=== PATIENT | female | born 1970 | race Caucasian/White ===

== ENCOUNTER → 2017-10-12 07:00 | Outpatient (CLI) | payer OTHER, SELFPAY ==
--- NOTE | 2017-10-12 06:54 | HPBI_ITS ---
MAMMOGRAPHY - BILATERAL SCREENING REASON FOR EXAM: Female, 47 years old. Routine annual screening examination. PERTINENT HISTORY: Non-contributory. TECHNIQUE: Digital bilateral breast serjio (3D mammographic acquisition) in the CC and MLO projections. 2-D mediolateral oblique (MLO) and craniocaudad (CC) views of both breasts were obtained. CAD: Full Field Digital Mammography with Computer Added Detection was performed. COMPARISON: Comparison is made with prior study dated September 30, 2016 and July 16, 2015. FINDINGS: Breast Composition: The breasts are almost entirely fatty. There are no dominant masses or suspicious calcifications. Stable benign-appearing bilateral axillary lymph nodes. No other significant abnormalities are identified. There has been no significant change since the prior study. HPBI/SCREENING MAMM (CAD), BILAT IMPRESSION: Stable bilateral screening mammogram. Yearly follow-up mammogram recommended. (A) ASSESSMENT CATEGORY: BIRADS Category 2: Benign. A letter regarding these results will be sent to the patient by the facility within 30 days. Approximately 10% of breast cancers are not detected by mammography. A normal mammogram should not delay biopsy of a clinically suspicious abnormality. [id number] Electronically Signed: Cristian Sellers MD at 14:42 EST Tel [phone], Service support ,
== END ==
PROVIDERS: Family Provider Family Medicine; PCP Family Medicine; Visit Provider Obstetrics & Gynecology
DX: Z12.31 Encounter for screening mammogram for malignant neoplasm of breast (principal)
CPT/HCPCS: 77063; 77067

== ENCOUNTER → 2017-10-14 14:06 | Outpatient (CLI) | payer OTHER, SELFPAY ==
[2017-10-18 16:39] LABS: HPV Reflexed? NOT INDICATED
== END ==
PROVIDERS: Family Provider Family Medicine; PCP Family Medicine; Visit Provider Obstetrics & Gynecology
DX: Z12.4 Encounter for screening for malignant neoplasm of cervix (principal)
CPT/HCPCS: 88175; G0145

== ENCOUNTER → 2018-11-09 09:47 | Outpatient (CLI) | payer OTHER, SELFPAY ==
--- NOTE | 2018-11-09 09:51 | BI_ITS ---
We are attempting to reach Soila Mccauley MD to discuss findings. An addendum with communication details will be sent when the communication is complete. MAMMOGRAPHY - BILATERAL SCREENING REASON FOR EXAM: Female, 48 years old. Routine annual screening examination. PERTINENT HISTORY: Non-contributory. TECHNIQUE: Digital bilateral breast serjio (3D mammographic acquisition) in the CC and MLO projections. 2-D mediolateral oblique (MLO) and craniocaudad (CC) views of both breasts were obtained. CAD: Full Field Digital Mammography with Computer Added Detection was performed. COMPARISON: Comparison is made with prior study dated October 12, 2017 and September 30, 2016. FINDINGS: Breast Composition: The breasts are almost entirely fatty. There are no dominant masses or suspicious calcifications. No other significant abnormalities are identified. There has been no significant change since the prior study. BI/SCREENING MAMM (CAD), BILAT IMPRESSION: Stable bilateral screening mammogram. Yearly follow-up mammogram recommended. (A) ASSESSMENT CATEGORY: BIRADS Category 1: Negative. A letter regarding these results will be sent to the patient by the facility within 30 days. Approximately 10% of breast cancers are not detected by mammography. A normal mammogram should not delay biopsy of a clinically suspicious abnormality. [id number] Pending Final Proof Editing
== END ==
PROVIDERS: Family Provider Family Medicine; PCP Family Medicine; Referring Provider Obstetrics & Gynecology; Visit Provider Obstetrics & Gynecology
DX: Z12.31 Encounter for screening mammogram for malignant neoplasm of breast (principal)
CPT/HCPCS: 77063; 77067

== ENCOUNTER → 2018-11-09 12:09 | Outpatient (CLI) | payer OTHER, SELFPAY ==
[2018-11-09 16:01] LABS: Hematocrit 42.2 % (37-47); Hemoglobin 13.7 g/dl (12.0-15.0); Mean Corp Hgb Conc 32.5 g/gl (32-36); Mean Corpuscular Hgb 30.4 pg (27.0-32.0); Mean Corpuscular Volume 93.6 fL (81-99); Mean Platelet Vol. 11.1 fl (6.2-12.0); Platelet Count 292 K/mm3 (150-450); RBC Distribution Width CV 12.6 % (11.6-14.6); RBC Distribution Width SD 42.9 fl (35.1-43.9); Red Blood Count 4.51 M/mm3 (4.2-5.4); White Blood Count 8.2 K/mm3 (4.4-11.0)
[2018-11-09 16:02] LABS: Scan Indicated on CBC? Y/N NO
[2018-11-09 16:22] LABS: ALB/GLOB Ratio 1.2 RATIO (0.9-2.4); AST(SGOT) 78 U/L (15-37); Alanine Aminotransfer ALT/SGPT 71 U/L (13-56); Albumin, Serum 4.1 g/dL (3.2-5.0); Alkaline Phosphatase 95 U/L (45-117); Anion Gap 13 (5-15); BUN 8 mg/dL (7-18); BUN/Creat Ratio 11.3 RATIO (10-20); Calcium,Total 9.4 mg/dL (8.5-10.1); Chloride 106 mmol/L (98-107); Creatinine, Serum 0.71 mg/dL (0.55-1.02); EST Glomerular Filtration Rate 93 mL/min (>60); Est Glom Filt Rate - Afr Amer 113 mL/min (>60); Globulin 3.5 g/dL (2.2-4.2); Glucose 202 mg/dL (74-106); Protein, Total 7.6 g/dL (6.4-8.2); Sodium Level 140 mmol/L (136-145)
[2018-11-15 12:23] LABS: HPV Reflexed? NOT INDICATED
== END ==
PROVIDERS: Visit Provider Obstetrics & Gynecology
DX: Z12.4 Encounter for screening for malignant neoplasm of cervix (principal); R19.00 Intra-abdominal and pelvic swelling, mass and lump, unspecified site
CPT/HCPCS: 36415; 80053; 85027; 88175; G0145

== ENCOUNTER → 2018-11-14 11:27 | Outpatient (CLI) | payer OTHER, SELFPAY ==
--- NOTE | 2018-11-14 12:59 | CT_ITS ---
STUDY: CT ABDOMEN AND PELVIS WITH CONTRAST REASON FOR EXAM: Female, 48 years old. Right adnexal mass RADIATION DOSAGE (If Supplied By Facility): CTDIvol = ( 20.42 ) mGy, DLP = ( 2071.82 ) mGycm TECHNIQUE: Transaxial images were obtained from the dome of the diaphragm to the symphysis pubis without oral contrast. Isovue 300 100 IV/Oral was administered. Sagittal and coronal images were reconstructed. Individualized dose optimization techniques were used for this CT. COMPARISON: None. FINDINGS: The visualized lung bases are unremarkable. The visualized portions of the heart are within normal limits. Liver is fatty infiltrated without mass or bile duct dilatation. Gallbladder has been removed surgically.. Normal spleen. Normal pancreas. Normal bilateral adrenal glands. Normal right kidney. Normal left kidney. Normal visualized stomach. Normal small intestine. Normal colon. No evidence for acute appendicitis. Normal abdominal aorta. Normal inferior vena cava. Normal retroperitoneum. There is a large complex predominantly solid mass in the right adnexa measuring approximately 10.95 x 6.94 x 6.81 cm displacing the uterus towards the left and depressing the dome of the bladder which is incompletely distended and thick-walled. There is a moderate size fat-containing umbilical hernia.. Lumbar spine demonstrates mild spondylosis CT/Abdomen/Pelvis WITH Contrast IMPRESSION: Large complex predominantly solid mass in the right adnexa most likely ovarian however cannot definitively exclude pedunculated fibroid. MRI would be helpful for further evaluation. Nonspecific fatty infiltration of the liver. Status postcholecystectomy. Electronically Signed: Alvin Renteria MD at 17:14 EST , Service support ,
[2018-11-14 14:13] LABS: Hemoglobin A1c 8.7 % (4.2-6.3)
[2018-11-14 14:18] LABS: Free T3 4.4 pg/mL (2.18-3.98); T4 Free Direct 1.19 ng/dL (0.76-1.46); Thyroid Stim Hormone (TSH) 1.85 uIU/mL (0.358-3.74)
== END ==
PROVIDERS: Family Provider Family Medicine; PCP Family Medicine; Referring Provider Obstetrics & Gynecology; Visit Provider Obstetrics & Gynecology
DX: R19.09 Other intra-abdominal and pelvic swelling, mass and lump (principal); R73.09 Other abnormal glucose
CPT/HCPCS: 36415; 74177; 83036; 84439; 84443; 84481; Q9967

== ENCOUNTER → 2018-12-01 12:28 | Outpatient (CLI) | payer OTHER, SELFPAY ==
--- NOTE | 2018-12-01 13:00 | MRI_ITS ---
STUDY: MR PELVIS WITH T WITHOUT CONTRAST REASON FOR EXAM: Female, 48 years old. Right sided adnexal mass. TECHNIQUE: Standardized fat and water weighted pulse sequences were obtained in all 3 orthogonal planes, pre-and post contrast administration. Dotarem 20 ml IV was administered for the contrast portion of the examination. COMPARISON: CT of the abdomen and pelvis dated November 14, 2018. FINDINGS: Normal urinary bladder. There is no evidence for dilated bowel. There appears to be abnormal thickening of the roman of the rectum and sigmoid colon. The roman measure up to 1.3 cm in thickness. The uterus has a normal appearance and measures approximately 10.4 x 5.3 x 4.6 cm in size. There is a large right-sided pelvic mass adjacent to the uterus probably arising from the right ovary. This mass measures 9.1 cm in AP dimension by 6.3 cm in transverse dimension by 9.5 cm in cephalocaudal dimension. The mass has multiple peripheral areas of increased T2 hyperintensity with more central areas of decreased T2 signal. There is heterogeneous enhancement of the mass. There is no pelvic fluid. There is no pelvic lymphadenopathy. Normal visualized pelvic arteries. Normal osseous structures. Normal abdominal wall. MRI/Pelvis W/WO Contrast IMPRESSION: Large right-sided pelvic mass. This presumably arises from the right ovary and/or adnexal area and is neoplastic. Electronically Signed: Ciara Sorto MD at 4:34 EDT , Service support ,
== END ==
PROVIDERS: Family Provider Family Medicine; PCP Family Medicine; Referring Provider Obstetrics & Gynecology; Visit Provider Obstetrics & Gynecology
DX: R19.03 Right lower quadrant abdominal swelling, mass and lump (principal)
CPT/HCPCS: 72197; A9575

== ENCOUNTER → 2018-12-07 14:16 | Outpatient (CLI) | payer OTHER, SELFPAY ==
[2018-12-07 15:09] LABS: LDH 254 U/L (84-246)
[2018-12-07 15:16] LABS: hCG Titer Quant., Serum < 1 mIU/mL (<9 non-preg)
[2018-12-08 14:03] LABS: Cancer Antigen 125 21.2 U/mL (0.0-38.1); Carbohydrate AG 19-9 29 U/mL (0-35); Carcinoembryonic Antigen 2.6 ng/mL (0.0-4.7)
== END ==
PROVIDERS: Family Provider Family Medicine; PCP Family Medicine; Visit Provider Obstetrics & Gynecology
DX: N83.209 Unspecified ovarian cyst, unspecified side (principal)
CPT/HCPCS: 36415; 82378; 83615; 84702; 86301; 86304

== ENCOUNTER 2018-12-15 09:45 | Day surgery (SDC) | payer OTHER, SELFPAY ==
[2018-12-14 13:08] VITALS: BMI 47.2
[2018-12-15 10:05] VITALS: BP 159/88; PULSE 103; RESP 20; TEMP 37.2; O2SAT 99; BMI 46.6
[2018-12-15 10:16] LABS: Internal QC Validated? YES +Cl - CLEAR BKGD; Pregnancy, Urine Negative Negative
[2018-12-15 10:25] LABS: Bedside Glucose 194 mg/dL (70-110)
[2018-12-15 11:53] VITALS: BP 144/81; BP 159/88; PULSE 97; RESP 16; TEMP 36.1; O2SAT 99
--- NOTE | 2018-12-15 11:53 | OP.ENDO_ITS ---
12/15/2018 Juan Portillo Re : Colonoscopy procedure for Deepti Perez Dear Bandar This procedure was performed on Saturday, December 15, 2018. My impressions and recommendations are as follows: Impressions : - Hemorrhoids found on perianal exam. - The entire examined colon is normal on direct and retroflexion views. - No specimens collected. Recommendations : - Discharge patient to home. - Resume previous diet. - Continue present medications. - Repeat colonoscopy in 10 years for screening purposes. My findings are described in the full procedure note, which is enclosed. If I can be of further assistance, please feel free to contact me at Doctor phone number(s): , Work: . Sincerely, Gordon Del Toro MD 12/15/2018 11:53:20 AM This report has been signed electronically.
[2018-12-15 11:58] VITALS: BP 138/83; BP 159/88; PULSE 88; RESP 16; O2SAT 100
[2018-12-15 12:03] VITALS: BP 138/90; BP 159/88; PULSE 91; RESP 16; O2SAT 100
[2018-12-15 12:08] VITALS: BP 119/83; BP 159/88; PULSE 89; RESP 16; TEMP 35.9; O2SAT 100
[2018-12-15 12:36] VITALS: BP 159/88
== END 2018-12-15 12:36 | disposition home or self-care (01) ==
LOC: EN 09:46 → AC 09:47
PROVIDERS: Anesthesiology; Family Provider Family Medicine; PCP Family Medicine; Referring Provider Family Medicine; Visit Provider Surgery
PROC: 0DJD8ZZ Inspection of Lower Intestinal Tract, Via Natural or Artificial Opening Endoscopic (ICD-10-PCS; CPT 45378; principal; 2018-12-15 10:55)
DX: K64.9 Unspecified hemorrhoids (principal); R93.3 Abnormal findings on diagnostic imaging of other parts of digestive tract; R19.09 Other intra-abdominal and pelvic swelling, mass and lump; K63.89 Other specified diseases of intestine; E11.9 Type 2 diabetes mellitus without complications; Z79.84 Long term (current) use of oral hypoglycemic drugs; Z87.891 Personal history of nicotine dependence
CPT/HCPCS: 45378; 81025; 82962; J7120

== ENCOUNTER → 2018-12-28 15:00 | Outpatient (CLI) | payer OTHER, SELFPAY ==
[2018-12-15 10:05] VITALS: BMI 46.6
[2018-12-28 17:57] LABS: LDH 166 U/L (84-246)
[2019-01-01 11:30] LABS: HCG BETA-SUBUNIT QUANT. < 1 mIU/mL (.)
[2019-01-01 12:02] LABS: AFP, Tumor Marker 4.8 ng/mL (0.0-8.3)
== END ==
PROVIDERS: Family Provider Family Medicine; PCP Family Medicine; Visit Provider Obstetrics & Gynecology
DX: R19.00 Intra-abdominal and pelvic swelling, mass and lump, unspecified site (principal)
CPT/HCPCS: 36415; 82105; 83615; 84702

== ENCOUNTER → 2019-01-18 09:00 | Outpatient (CLI) | payer OTHER, SELFPAY ==
[2019-01-18 09:15] VITALS: BP 154/91; PULSE 89; RESP 16; TEMP 36.5; O2SAT 96; BMI 45.3
--- NOTE | 2019-01-18 09:20 | SDCEKG_ITS ---
Test Reason : Blood Pressure : / mmHG Vent. Rate : 089 BPM Atrial Rate : 089 BPM P-R Int : 158 ms QRS Dur : 080 ms QT Int : 364 ms P-R-T Axes : 048 002 022 degrees QTc Int : 442 ms Normal sinus rhythm Inferior infarct , age undetermined Cannot rule out Anterior infarct , age undetermined Abnormal ECG Confirmed by CHARLES SOLOMON, PHOEBE ([id number]), web content editor ISAÍAS MATUTE ([id number]) on 01/23/2019 9:15:03 AM Referred By: Soila Mccauley Confirmed By:PHOEBE SOTO MD
--- NOTE | 2019-01-18 09:45 | RAD_ITS ---
STUDY: X-RAY CHEST REASON FOR EXAM: Female, 48 years old. Preoperative evaluation. TECHNIQUE: PA and lateral views of the chest. COMPARISON: None. FINDINGS: The lungs are clear and expanded. There is no demonstrated pleural abnormality. Normal size heart. Normal mediastinum and thee. Normal visualized pulmonary arteries. Normal visualized aortic arch and descending thoracic aorta. Normal visualized thoracic spine. Normal visualized ribs, clavicles, and shoulders. There is no demonstrated abnormality of the visualized soft tissue structures of the upper abdomen. RAD/Chest PA and Lateral IMPRESSION: Normal x-ray examination of the chest. Electronically Signed: Cristian Sellers, at 10:30 EDT , Service support ,
[2019-01-18 09:55] LABS: Hematocrit 39.3 % (37-47); Hemoglobin 13.5 g/dl (12.0-15.0); Mean Corp Hgb Conc 34.4 g/gl (32-36); Mean Corpuscular Hgb 31.5 pg (27.0-32.0); Mean Corpuscular Volume 91.6 fL (81-99); Mean Platelet Vol. 9.8 fl (6.2-12.0); Platelet Count 279 K/mm3 (150-450); RBC Distribution Width CV 12.8 % (11.6-14.6); RBC Distribution Width SD 42.6 fl (35.1-43.9); Red Blood Count 4.29 M/mm3 (4.2-5.4); White Blood Count 7.3 K/mm3 (4.4-11.0)
[2019-01-18 09:58] LABS: Scan Indicated on CBC? Y/N NO
[2019-01-18 10:05] LABS: Partial Thromboplast Time 27.9 Seconds (24.1-36.2); Prothrombin Time (Protime)PT. 12.6 SECONDS (11.7-14.9)
[2019-01-18 10:16] LABS: Hemoglobin A1c 6.7 % (4.2-6.3)
[2019-01-18 10:28] LABS: Anion Gap 10 (5-15); BUN 9 mg/dL (7-18); Calcium,Total 8.6 mg/dL (8.5-10.1); Chloride 106 mmol/L (98-107); Creatinine, Serum 0.69 mg/dL (0.55-1.02); EST Glomerular Filtration Rate 96 mL/min (>60); Est Glom Filt Rate - Afr Amer 116 mL/min (>60); Glucose 178 mg/dL (74-106); Potassium 3.6 mmol/L (3.5-5.1); Sodium Level 138 mmol/L (136-145); Thyroid Stim Hormone (TSH) 1.13 uIU/mL (0.358-3.74)
--- NOTE | 2019-01-22 19:23 | PCM.HP.STD ---
Problem List (1) Adnexal mass Status: Acute History of Present Illness Date of Admission: 01/25/19 Chief Complaint: right adnexal mass and pelvic pain The patient is a 48 year old F with pain of pelvis following fall down flight of stairs. Notation of right adnexal mass 9cm. Patient desires hysterectomy. Patient with recent diagnosis of diabetes. Clearance by pcp of the diabetes. Past Medical History Medical History: Medical History (Last Updated 12/14/18 @ 13:07 by Yuliana Mcginnis) Adnexal mass N94.9 Diabetes E11.9 Allergies nickel Allergy (Mild, Verified 01/18/19 09:07) rash Home Medications: Ambulatory Orders Medication Instructions Recorded Calcium Polycarbophil [Fiber Tabs] 1,250 mg PO QHS 12/14/18 L norgest/E estradiol-E estrad 1 tab PO DAILY 12/14/18 0.15 mg-30 mcg (84)/10 mcg(7) tabs,3mos ascorbic acid (vitamin C) 1,000 mg 1 g PO DAILY 12/14/18 tablet metformin 500 mg tablet 500 mg PO TID tab 12/14/18 multivitamin,fi-rrbr-kmzjzkas 1 tab PO DAILY 12/14/18 tablet Cetirizine HCl [Zyrtec] 10 mg PO DAILY 01/18/19 Surgical History: Surgical History (Last Updated 12/14/18 @ 13:07 by Yuliana Mcginnis) History of section Z98.891 History of cholecystectomy Z90.49 History of hernia repair Z98.890, Z87.19 Smoking Status: Former smoker Review of Systems Constitutional: Denies: Chills, Fever, Weight Change HEENT: Denies: Difficulty Hearing, Difficulty Swallowing, Nasal bleeding, Nasal Congestion, Sore Throat Cardiovascular: Denies: Chest Pain, Palpitations Respiratory: Denies: Shortness of Breath, Wheezing Gastrointestinal: Denies: Constipation, Diarrhea, Nausea, Vomiting Genitourinary: Denies: Dysuria, Frequency, Hematuria, Incontinence, Urgency Musculoskeletal: Denies: Joint Pain, Muscle pain Skin: Denies: Lesions, Skin Changes Neurological: Denies: Focal weakness, Numbness Psychiatric: Denies: Anxiety, Depression Endocrine: Denies: Heat/ Cold Intolerance Hematologic/ Lymphatic: Denies: Easy Bleeding VTE Information - Inpt Only VTE Present on Admission: No VTE Mechan Device Prophylaxis: SCD's VTE Pharm Prophylaxis ordered?: No Reason prophylaxis not ordered:: Procedure Not Indicated Subjective: Patient is 5 feet, 4 inches. Weight is 278 pounds. Alert and oriented x 3. No distress. - Physical Exam General: No apparent distress, Well developed, Well nourished HEENT: PERRLA, EOMI, Normocephalic Oral: Moist Mucosa Neck: Supple, Thyroid Normal Size and Texture Lungs: Clear to auscultation, Normal air movement, No wheeze Cardiovascular: Regular rate, Regular Rhythm Abdomen: Bowel Sounds Present, Soft, Non Tender Extremities: No edema, No Calf Tenderness Skin: No rashes Musculoskeletal: No Tenderness to Palpation of Joints or Extremities Neurological: Cranial nerves II-XII grossly intact Vital Signs Temp Pulse Resp BP Pulse Ox 97.7 F L 89 16 154/91 H 96 01/18/19 09:15 01/18/19 09:15 01/18/19 09:15 01/18/19 09:15 01/18/19 09:15 Oxygen Delivery Method Room Air Weight: 264 lb 8.875 oz Body Mass Index (BMI) 45.3 Assessment/Plan All Active Problems (Last Updated 12/14/18 @ 13:07 by Yuliana Mcginnis) Adnexal mass (Acute) Adnexal mass (Acute) Mural thickening of colon (Acute) 1. Right adnexal mass and pelvic pain patient desires hysterectomy. Plan robotic assisted hysterectomy, BSO. negative tumor markers frozen section of mass is planned the preop preparation including bowel prep, the intraop procedures and the postop recovery reviewed. The risks of bleeding, infection and other organ damage including bladder, bowel and ureteral injury reviewed, accepted and consented. 2. Prior hernia repairs obtain operative reports as to mesh usage and location 3. Thickened bowel wall on CT general surgery consult and clearance 4. Diabetes Mellitus recent diagnosis improved HgA1C below 7 postop nutrition consult is recommended for best healing
== END ==
PROVIDERS: Anesthesiology; Family Provider Family Medicine; PCP Family Medicine; Referring Provider Obstetrics & Gynecology; Visit Provider Obstetrics & Gynecology
DX: Z01.818 Encounter for other preprocedural examination (principal)
CPT/HCPCS: 71046; 80048; 83036; 84443; 85027; 85610; 85730; 86850; 86900; 93005

== ENCOUNTER → 2019-02-01 12:22 | Outpatient (CLI) | payer OTHER, SELFPAY ==
[2019-01-26 09:23] VITALS: BMI 44.8
--- NOTE | 2019-02-01 12:24 | ECHOD_ITS ---
Reason For Study: HYPERTENSION Procedure This was a 2D Doppler, Color Flow transthoracic echocardiogram. The study was technically difficult. Due to body habitus. Exam performed in department. Left Ventricle Normal LV size. Left ventricular systolic function is normal. The estimated ejection fraction is 60 %. Stage 1 diastolic dysfunction. No regional wall motion abnormalities noted. Right Ventricle Normal RV size. Normal systolic function. Atria Normal left atrium. Normal right atrium. Mitral Valve Normal mitral valve. Tricuspid Valve Normal tricuspid valve. Aortic Valve Normal aortic valve. Trisinus/trileaflet aortic valve. Pulmonic Valve Normal pulmonic valve. Great Vessels Normal aortic root. The pulmonary artery is normal size. Normal inferior vena cava. Pericardium/Pleural No pericardial effusion. MMode/2D Measurements & Calculations LVIDd: 5.4 cm IVSd: 0.84 cm Ao root diam: 3.3 cm LVIDs: 4.0 cm LVPWd: 0.97 cm RVDd: 3.9 cm FS: 27.0 % LAV(MOD-bp): 63.1 ml LA A4 area: 22.3 cm2 LA dimension(2D): 3.7 cm LAV(MOD-bp) Indexed: 28.8 ml/m2 LAV(MOD-sp2): 52.7 ml LAV(MOD-sp4): 71.2 ml Time Measurements MV dec time: 0.15 sec Doppler Measurements & Calculations MV E max ziggy: 103.2 cm/sec Lat Peak E' Ziggy: 12.0 cm/sec Med Peak E' Ziggy: 11.9 cm/sec MV A max ziggy: 113.1 cm/sec E/E' lat: 8.6 E/E' med: 8.7 MV E/A: 0.91 Ao V2 max: 173.8 cm/sec LV V1 max: 140.1 cm/sec PA V2 max: 100.5 cm/sec Ao max P.1 mmHg LV V1 max P.9 mmHg Interpretation Summary Normal LV size. Left ventricular systolic function is normal. The estimated ejection fraction is 60 %. Stage 1 diastolic dysfunction. Structurally normal valves. Ordering Physician: Ramesh Fernandes Referring Physician: Juan Portillo Performed By: Tawanna Wood, HORACE, RVT
== END ==
PROVIDERS: Family Provider Family Medicine; PCP Family Medicine; Referring Provider Internal Medicine Cardiovascular Disease; Visit Provider Internal Medicine Cardiovascular Disease
DX: Z01.810 Encounter for preprocedural cardiovascular examination (principal)
CPT/HCPCS: 93306

== ENCOUNTER 2019-03-28 17:24 | Observation (INO) | payer OTHER, SELFPAY ==
[2019-02-27 12:42] VITALS: BMI 46.2
[2019-03-23 16:05] LABS: Prothrombin Time (Protime)PT. 12.5 SECONDS (11.7-14.9)
[2019-03-23 16:06] LABS: Hematocrit 40.9 % (37-47); Hemoglobin 13.8 g/dl (12.0-15.0); Mean Corp Hgb Conc 33.7 g/gl (32-36); Mean Corpuscular Hgb 30.7 pg (27.0-32.0); Mean Corpuscular Volume 90.9 fL (81-99); Mean Platelet Vol. 10.6 fl (6.2-12.0); Partial Thromboplast Time 27.6 Seconds (24.1-36.2); Platelet Count 326 K/mm3 (150-450); RBC Distribution Width CV 12.2 % (11.6-14.6); RBC Distribution Width SD 39.9 fl (35.1-43.9); White Blood Count 8.6 K/mm3 (4.4-11.0)
[2019-03-23 16:07] LABS: Scan Indicated on CBC? Y/N NO
[2019-03-23 16:47] LABS: Hemoglobin A1c 6.3 % (4.2-6.3)
--- NOTE | 2019-03-26 12:49 | PCM.HP.STD ---
Problem List (1) Adnexal mass Status: Acute History of Present Illness Date of Admission: 03/27/19 Chief Complaint: Adnexal mass The patient is a 48 year old F requiring surgical removal of right adnexal mass. Identified after patient had fall. Noted on multiple imaging studies. Tumor markers via serum in benign range. Patient with multiple prior abdominal mesh placements. General surgery to assist to enter the abdomen, perform appendectomy and repair a ventral hernia. Past Medical History Medical History: Medical History (Last Reviewed 03/26/19 @ 13:34 by Soila Mccauley MD) Adnexal mass N94.9 History of depression Z86.59 Type 2 diabetes mellitus without complication E11.9 Allergies bacitracin [From Neosporin ([id number])] Allergy (Intermediate, Verified 03/21/19 11:08) rash neomycin [From Neosporin ([id number])] Allergy (Intermediate, Verified 03/21/19 11:08) rash polymyxin B [From Neosporin ([id number])] Allergy (Intermediate, Verified 03/21/19 11:08) rash nickel Allergy (Mild, Verified 03/21/19 11:08) rash Home Medications: Ambulatory Orders Medication Instructions Recorded L norgest/E estradiol-E estrad 1 tab PO DAILY 12/14/18 0.15 mg-30 mcg (84)/10 mcg(7) tabs,3mos ascorbic acid (vitamin C) 1,000 mg 1 g PO DAILY 12/14/18 tablet multivitamin,hp-wbps-phcobrbr 1 tab PO DAILY 12/14/18 tablet Cetirizine HCl [Zyrtec] 10 mg PO DAILY 01/18/19 albuterol sulfate HFA 90 2 puff INHALATION Q6H PRN 01/25/19 mcg/actuation aerosol inhaler metformin ER 500 mg 500 mg PO TID tab 01/25/19 tablet,extended release 24 hr lactobacillus combination no.4 3 3,000 mmu cells PO DAILY 01/26/19 billion cell capsule Glipizide [Glipizide ER] 2.5 mg PO DAILY 03/21/19 Surgical History: Surgical History (Last Updated 02/27/19 @ 12:42 by Yuliana Mcginnis) History of colonoscopy Onset Date: ~12/2018 Z98.890 History of section Z98.891 History of cholecystectomy Z90.49 History of hernia repair Z98.890, Z87.19 Smoking Status: Former smoker Review of Systems Constitutional: Denies: Chills, Fever, Weight Change Eyes: Reports: - HEENT: Denies: Difficulty Hearing, Difficulty Swallowing, Nasal bleeding, Nasal Congestion, Sore Throat Cardiovascular: Denies: Chest Pain, Palpitations Respiratory: Denies: Shortness of Breath, Wheezing Gastrointestinal: Denies: Constipation, Diarrhea, Nausea, Vomiting Genitourinary: Denies: Dysuria, Frequency, Hematuria, Incontinence, Urgency Musculoskeletal: Denies: Joint Pain, Muscle pain Skin: Denies: Lesions, Skin Changes Neurological: Denies: Focal weakness, Numbness Psychiatric: Denies: Anxiety, Depression Endocrine: Denies: Heat/ Cold Intolerance Hematologic/ Lymphatic: Denies: Easy Bleeding VTE Information - Inpt Only VTE Present on Admission: No VTE Mechan Device Prophylaxis: SCD's VTE Pharm Prophylaxis ordered?: No Reason prophylaxis not ordered:: Procedure Not Indicated Subjective: Female at 5'4 and 251 pounds. No acute distress. - Physical Exam General: No apparent distress, Well developed, Well nourished HEENT: Atraumatic Oral: Moist Mucosa Neck: Supple, No Nuchal Rigidity Lungs: Clear to auscultation, Normal air movement Cardiovascular: Regular rate, No murmurs, No rub noted Abdomen: Soft, Non-Distended, - - No guarding, hepatomegaly, splenomegaly, rebound tenderness Extremities: No edema, No Calf Tenderness Skin: No rashes Musculoskeletal: No Tenderness to Palpation of Joints or Extremities Neurological: Cranial nerves II-XII grossly intact Body Mass Index (BMI) 46.2 Assessment/Plan All Active Problems (Last Reviewed 02/27/19 @ 12:42 by Yuliana Mcginnis) Preop cardiovascular exam (Acute) Abnormal EKG (Acute) Adnexal mass (Acute) Mural thickening of colon (Acute) 1. Right adnexal mass Robotic assisted hysterectomy, BSO is planned with high likelihood of required laparotomy and MIHAI/BSO due to multiple mesh surgeries in the past. The preop preparation including bowel prep, the intraop procedures and the postop recovery reviewed. The risks of bleeding, infection and other organ damage including bladder, bowel and ureteral injury reviewed, accepted and consented. 2. Type II diabetes metformin improved status and HgA1C 3. 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 Mesh hernia repairs x 4 Dr. Del Toro as co-surgeon planned ventral hernia repair
[2019-03-27] VITALS (17 sets, daily range): BP systolic 119–168; BP diastolic 63–96; PULSE 81–116; RESP 16–18; TEMP 36.3–37.1; O2SAT 92–99; BMI 42.3
--- NOTE | 2019-03-27 | MASS_PTH ---
PATIENT: JAIME BUSTILLOS LOC: [facility] U#:[id number] AGE/SX: 48/F ROOM: [facility]313 RE03/28/[address]: Dr. Gordon Del Toro MD : 1970 BED: 1 DIS: 03/29/2019 SPEC #: [id number] RECD: 03/27/19 10:54 STATUS: YANELI REDonald #: [id number] ANTONIA: 03/27/19 00:[address]: Gordon Del Toro DEPT: SURGICAL PATHOLOGY RECD BY: Christina Paul ENTERED: 03/27/19 11:21 SP TYPE: Mass OTHR DR: MD Dr. Juan Lerner MD Tissues: A - Pelvis, NOS B - Uterus, NOS Procedures: Frozen Section (charge) Surgery Specimen Level IV Surgery Specimen Level HEADER OPERATION: Hysterectomy, bilateral salpingo-oophorectomy PRE-OP DIAGNOSIS: Right adnexal mass TISSUE SUBMITTED: A - Pelvic mass, B - Uterus, cervix, bilateral fallopian tubes and ovaries FROZEN SECTION DIAGNOSIS A. Pelvic mass, excision: Leiomyoma. AM:nany 03/27/19 Case has been reviewed in consultation with Dr. Shaw who concurs with the above diagnosis. IDC:KEVIN MICROSCOPIC DIAGNOSIS A. Pelvic mass, excision: Leiomyoma (337 gm, 12 cm in greatest dimension). B. Uterus, cervix, bilateral fallopian tubes and bilateral ovaries, hysterectomy and bilateral salpingo-oophorectomy: Cervix - chronic cystic cervicitis. Endometrium - weakly proliferative endometrium. Myometrium - intramural leiomyomas (largest measuring 1 cm in greatest dimension). - Focal adenomyosis. Bilateral fallopian tubes - no pathologic diagnosis. Right ovary - no pathologic diagnosis. Left ovary - focal endometriosis. KEVIN:nany 03/29/19 COMMENT Case has been reviewed in consultation with Dr. Montoya who concurs with the above diagnosis. IDC:SADA MICROSCOPIC DESCRIPTION Slides are reviewed. GROSS DESCRIPTION A - Received fresh for frozen section diagnosis labeled with the patient's name is a specimen designated pelvic mass. The specimen consists of a villagran solid nodular piece of tissue weighing 337 gm and measuring 12 x 10 x 7 cm. The outer surface is smooth and inked black. Serial sections reveal villagran whorled cut surfaces without areas of hemorrhage or necrosis. Sections revealed focal areas of cystic changes. Two sections are submitted for frozen section diagnosis. Environmental Health Specialist sections are submitted in eight cassettes as follows: 1 & 2 - frozen sections, 38 - more sections. / SJ:rg 03/27/19 B - Received in fixative is one container labeled with the patient's name and designated uterus, cervix, bilateral fallopian tubes, bilateral ovaries. The specimen consists of a hysterectomy specimen consisting of uterus with cervix and attached bilateral fallopian tubes and ovaries. The uterus with cervix weighs 109 gm and measures 9.5 x 6 x 4.5 cm. The serosal surface is villagran, glistening. The ectocervical mucosa is focally congested. The external os is slit-like in contour. The endocervical canal measures 3.5 cm in length and the endocervical mucosa is villagran, glistening without any mass lesion. The endocervical canal also shows mucoid, bloody material. The triangular endometrial cavity measures 5 cm in length and up to 2.5 cm in width. The endometrium is villagran, glistening without any mass lesion and measures 0.1 cm in thickness. The uterine wall reveals multiple intramural nodular masses with the largest mass measuring 1 cm in greatest dimension. Sections of these masses reveal villagran whorled cut surfaces without areas of hemorrhage, necrosis or cystic degeneration. The uninvolved uterine wall measures up to 2 cm in thickness. The right fallopian tube measures 5 cm in length and up to 0.5 cm in diameter. The fimbrial end is identified. A few adherent pieces of adipose tissue are noted. No tubo-ovarian adhesions are identified. Sections reveal unremarkable cut surfaces. The right ovary measures 2.5 x 1.5 x 0.7 cm. Sections reveal unremarkable cut surfaces. The left fallopian tube is similar appearance to right and measures 5 cm in length and 0.5 cm in diameter. Definite fimbrial end is not identified. Adherent pieces of adipose tissue are noted adjacent to fallopian tube. No tubo-ovarian adhesions are noted. The left ovary measures 2.4 x 1.5 x 1 cm. Sections reveal unremarkable cut surfaces. Environmental Health Specialist sections are submitted in 11 cassettes as follows: 1 - anterior cervix, 2 - posterior cervix, 3 & 4 - anterior uterine wall, 5 & 6 - posterior uterine wall, 7 - nodular masses, 8 - right fallopian and attached adipose tissue, 9 - right ovary, 10 - left fallopian tube and attached adipose tissue, 11 - left ovary. / SJ:rg 03/28/19 TC:1 CPT: 20713, 68496, 49628, 01048 ADDENDUM ADDENDUM ADDENDUM ADDENDUM ADDENDUM ADDENDUM ADDENDUM ADDENDUM ADDENDUM ADDENDUM 04/05/2019 10:06 ADDENDUM 04/05/2019 10:06 ADDENDUM 04/05/2019 10:06 ADDENDUM 04/05/2019 10:06 ADDENDUM 04/05/2019 10:06 This addendum is added to incorporate an outside pathology consultation report. The case was examined at [facility] (#[id number]) and the following diagnosis was rendered. A. Pelvic mass, excision: Leiomyoma. Please see complete above mentioned consultation report in EMR
[2019-03-27 06:11] LABS: Bedside Glucose 153 mg/dL (70-110)
[2019-03-27 06:16] LABS: Anion Gap 10 (5-15); BUN 10 mg/dL (7-18); BUN/Creat Ratio 13.9 RATIO (10-20); Calcium,Total 9.6 mg/dL (8.5-10.1); Chloride 107 mmol/L (98-107); Creatinine, Serum 0.72 mg/dL (0.55-1.02); EST Glomerular Filtration Rate 92 mL/min (>60); Est Glom Filt Rate - Afr Amer 111 mL/min (>60); Estimated Creatinine Clearance 82.51 ml/min; Glucose 159 mg/dL (74-106); Potassium 3.3 mmol/L (3.5-5.1); Sodium Level 136 mmol/L (136-145)
[2019-03-27 06:20] LABS: Internal QC Validated? YES +Cl - CLEAR BKGD; Pregnancy, Urine Negative Negative
--- NOTE | 2019-03-27 06:59 | PCM.HP.BLA ---
Problem List (1) Recurrent ventral hernia Status: Acute (2) Adnexal mass Status: Acute History and Physical Date of Admission: 03/27/19 OFFICE VISIT Date of Service: 02/27/19 MR#: [id number] Acct: [id number] Name: JAIME BUSTILLOS Rep #: [id number] : 1970 Provider: Gordon Del Toro MD Age/Sex: 48/F Location: [facility] [place] Status: Signed Intake Vital Signs 02/27/19 Height 5 ft 4 in 02/27/19 Weight: 269 lb 4 oz 02/27/19 Body Mass Index (BMI) 46.2 02/27/19 Blood Pressure 134/80 H 02/27/19 Blood Pressure Location Rt brachial 02/27/19 Respiratory Rate 18 02/27/19 Pulse Rate 98 02/27/19 Pulse Ox 98 02/26/19 Body Mass Index (BMI) 44.8 Intake Visit Reasons: Discuss Sx per TC Chief Complaint: discuss hyster/ mesh Datastage Developer Required: No Is patient in pain?: No Allergies bacitracin [From Neosporin ([id number])] Allergy (Intermediate, Verified 03/21/19 11:08) rash neomycin [From Neosporin ([id number])] Allergy (Intermediate, Verified 03/21/19 11:08) rash polymyxin B [From Neosporin ([id number])] Allergy (Intermediate, Verified 03/21/19 11:08) rash nickel Allergy (Mild, Verified 03/21/19 11:08) rash Medications L norgest/E estradiol-E estrad 0.15 mg-30 mcg (84)/10 mcg(7) tabs,3mos 1 tab PO DAILY 12/14/18 [History Confirmed 03/21/19] ascorbic acid (vitamin C) 1,000 mg tablet 1 g PO DAILY 12/14/18 [History Confirmed 03/21/19] multivitamin,tf-oqhm-pwrekxjh tablet 1 tab PO DAILY 12/14/18 [History Confirmed 03/21/19] Cetirizine HCl [Zyrtec] 10 mg PO DAILY 01/18/19 [History Confirmed 03/21/19] albuterol sulfate HFA 90 mcg/actuation aerosol inhaler 2 puff INHALATION Q6H PRN 01/25/19 [History Confirmed 03/21/19] metformin ER 500 mg tablet,extended release 24 hr 500 mg PO TID tab 01/25/19 [History Confirmed 03/21/19] lactobacillus combination no.4 3 billion cell capsule 3,000 mmu cells PO DAILY 01/26/19 [History Confirmed 03/21/19] Glipizide [Glipizide ER] 2.5 mg PO DAILY 03/21/19 [History Confirmed 03/21/19] Is last menstrual period known: No Post menopausal: No Patient : No PFSH Medical History Adnexal mass (Acute) History of depression (Chronic) Type 2 diabetes mellitus without complication (Chronic) Surgical History (Updated 02/27/19 @ 12:42 by Yuliana Mcginnis) History of colonoscopy (Acute ~12/2018) History of section (Resolved) History of cholecystectomy (Resolved) History of hernia repair (Resolved) Family History Father Asthma Grandfather Cancer lung Grandmother Alzheimer disease Grandfather COPD (chronic obstructive pulmonary disease) Social History (Updated 03/23/19 @ 08:15 by Gordon Del Toro MD) Smoking Status: Former smoker quit date: 08/12/95 alcohol intake: never caffeine: Yes Type: carbonated beverages, tea HPI HPI HPI: JAIME BUSTILLOS, is a 48 F who presents to the office today for HPI HPI Surgical H&P: Yes HPI: JAIME BUSTILLOS, is a 48 F who presents to the office today for excision of this mass. Patient has had no changes since last time I saw her. ROS General General: Yes fatigue; no weight change, appetite, colon cancer, breast cancer or weakness HEENT HEENT: No difficulty swallowing, eye injury, eye surgery, swollen glands or hoarseness Endo Endocrine: Yes diabetes mellitus; no thyroid disease, thyroid cancer, Hair loss, heat intolerance or cold intolerance Cardio Cardiovascular: No murmur, pacemaker, heart disease, atrial fibrillation, high blood pressure, heart attack, heart stent, palpitations, shortness of breat with exertion or chest pain Resp Respiratory: No shortness of breath, No sleep apnea, No cough, No COPD, No asthma, No emphysema, No wheezing Gastro Gastrointestinal: No abdominal pain, No nausea or vomiting, Yes diarrhea, No constipation, No blood in stool, No acid reflux, No hemorrhoids, No ulcers, No gallbladder problem, No black,tarry stools Neuro Neurologic: No weakness Exam Const General: cooperative Orientation: alert, oriented x3 Resp Effort & Inspection: normal respiratory effort Auscultation: clear to auscultation bilaterally Cardio Rate: regular rate Rhythm: regular rhythm Heart Sounds: no murmurs GI Inspection: non-distended Palpation: soft, hernia ventral, nontender Assessment & Plan Problems 1. Adnexal mass N94.89 2. Ventral hernia, recurrent K43.2 Plan I was contacted to assist with surgery Dr. Mccauley. The patient has recurrent incisional ventral hernia. She says she has had hernia repairs in the past. She says this hernia is bothering her with any activity. The plan with Dr. Landry will be to assist her on entering the abdomen intake now he is in so she may be able to do a robotic resection of this adnexal mass. I will also perform a tissue repair of this hernia at that time. I will be unable to use mesh as this will be contaminated surgery. If her hernia recurs after that I will fix it with mesh. If there is no way to get an laparoscopically the patient has been consented for laparotomy. The patient would also like appendectomy at the time of surgery so she has no other chance of having to have surgery in the future. I also discussed possibility of sigmoid colectomy if this mass is adherent to the sigmoid and she was given bowel prep instructions. The patient understands the complex nature of her surgery and all the risks including but not limited to bleeding, infection, anastomotic leak, hernia recurrence, bowel injury. The patient would like to proceed with surgery. Gordon Del Toro MD Pager: [facility] [address] [place] [address], [address] [place] [address] Office:
--- NOTE | 2019-03-27 10:26 | PCM.OPRPT ---
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 Bilateral adnexa normal. manager in training: Drew Cabrera Type of Anesthesia:: General Anesthesiologist: Hardeep Garza Special Medications: Cefotetan 3 grams Iv preop and Jennifer topical to the pelvis Specimen's removed: cervix, uterus, bilateral fallopian tubes, bilateral ovaries Drains: none Estimated Blood Loss (mL): 200cc Fluids Replaced: Lactated ringers Description of Procedure: Patient was brought to the operating room and n.p.o. status for patient. Upon entrance to the room which is placed in dorsal lithotomy position with Luis Antonio stirrups with catheter was placed and then a medium uterine manipulator was placed in touch with. Changing low concern to complication from her quadrant Visiport then reduce the hernia using a left lower quadrant a millimeter port gaining access for the camera port which was sequentially in place in the midline above the area of prior mesh placement. It was all done under direct visualization and hemostasis noted. Additional right-sided trocar was placed in the mid laterally for the 8 mm robotic arm and the Interceed was placed in the right upper border. Was noted that upon placement of the robot to the patient's bedside attachment both arms the left lower quadrant trocar was noted to not have maneuverability necessary but the robot is not been used for enteral lysis previously and additional left mid 8 mm trocar had been placed under direct visualization hemostasis was noted. The left robotic arm was the vessel sealer the right robotic arm was the monopolar ibis consult and restoring the normal anatomy. The normal anatomy was restored grasped cauterized and transected the broad ligament anterior posterior leaves the tibial ligament was identified. The ureter this was cauterized and transected for the development cessation of the uterine vessels. Uterine vessels were then cauterized and transected with for the development of the uterine peritoneum. 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 Patient's right lower it was grasped cauterized and transected separate in the broad ligament and anterior posterior leaves. The infundibulopelvic ligament was cauterized and transected eventual cauterization and transection of these areas. The uterine peritoneum was then dissected away from the lower uterine segment and the cervix with scar tissue being noted and additional tension-free required. Call the bilateral cardinal and uterosacral ligaments were cauterized and transected. Part of the incision was made at the 12:00 region of the cervix and carried around in a counterclockwise fashion. 2 the cervix, uterus, bilateral fallopian tubes and bilateral ovaries were removed from the vagina in my system place a vaginal tampon. The Dr. Norton then assumed control the consult and was able to free the mass away from the peritoneum and the pelvic sidewall was placed in the bag was inserted through the vagina and was set aside for later removal. I then resume control the console and using a suture stitches which attached to the vaginal cuff to the uterosacral cardinal complex bilaterally. 2 additional 0 Vicryl sutures were placed in a [id number] fashion to reapproximate the vaginal cuff entirely. Irrigation was then followed by placement of Jennifer to the pelvis. The patient was then at the biopsy and all incisions were removed robotic times 4 hernia repairs and removal of the mass. Sent for frozen section at the pathology lab. Inclusion of microsurgical sponge instrument needle counts were correct x2. Ureters were traced and noted to be well away from the area of operation and were peristalsing bilaterally. A second timeout occurred just prior to the start of the surgery and an exit timeout occurred on my completion of surgery Grafts/Implants Used: none - Complications none - Admit VTE Documentation VTE Present on Admission: No VTE Mechan Device Prophylaxis: SCD's VTE Pharm Prophylaxis ordered?: No Reason prophylaxis not ordered:: Procedure Not Indicated
[2019-03-27 11:40] LABS: Bedside Glucose 250 mg/dL (70-110)
--- NOTE | 2019-03-27 11:50 | OP.PCM_ITS ---
Problem List (1) Recurrent ventral hernia Status: Acute (2) Adnexal mass Status: Acute Report of Operation Date of Procedure: 03/27/19 Pre-Operative Diagnosis: Right adnexal mass. Recurrent ventral hernia Post-Operative Diagnosis: Same Surgery/Procedure Performed:: 1. Robotic assisted laparoscopic excision of adnexal mass. 2. Recurrent ventral hernia repair Specimen's removed: Pelvic mass Description of Procedure: The patient was brought back to the operating room and general anesthesia was induced. Patient was placed in the lithotomy position. Dr. Mccauley placed a Arreaga and uterine manipulator. The abdomen was then prepped and draped in usual sterile fashion. An incision was made in the left upper quadrant and a 5 mm Visiport port was placed into the abdominal wall and under direct visualization into the abdomen. The abdomen was insufflated to 15 mmHg. The abdomen was inspected and there was adhesions of the omentum to the prior mesh. The patient also had a superior hernia and inferior hernia in the midline. The 8 mm port was placed in the left lower quadrant under direct visualization. Using graspers the superior hernia was reduced into the abdomen. The contained fat. Anterior adhesions were then taken down using Enseal. There were fat contents in the inferior hernia inferior to the prior repair as well. These were reduced into the abdomen. This allowed visualization of the uterus and right adnexal mass. The patient was placed in the steep Trendelenburg position and another ro botic port was placed in the right lower quadrant. The robot was then docked and Dr. Mccauley proceeded with robotic hysterectomy. See her operative note for details. Next the right adnexal mass was identified and appeared to be in the retroperitoneal position. The peritoneum overlying it was scored and there was a nonvascular plane surrounding this mass. The nonvascular plane was followed circumferentially and the mass was delivered into the abdomen. The mass was placed into a bag and was unable to be removed through the vagina. After the vaginal cuff was sewn together the inferior ventral hernia was closed with a [id number] 0 Prolene suture using Richard-Lainey needle and a small ryan in the skin. Next the anterior port was removed and the skin incision was lengthened. The fascia was also lengthened superiorly to deliver the mass through the anterior abdomen. The anterior fascia was then closed with two #1 Prolene sutures starting at either end and meeting in the middle. The subcutaneous tissue was irrigated and the skin was closed with interrupted 3-0 Vicryl sutures as well as interrupted 4-0 Monocryl sutures. All the other ports were removed after the abdomen was reinsufflated under direct visualization. The skin incisions were anesthetized with Marcaine and closed with interrupted 4-0 Monocryl sutures and Steri-Strips and bandages. Patient was awoken and taken to PACU in stable condition. - Admit VTE Documentation VTE Mechan Device Prophylaxis: SCD's
[2019-03-27] MEDS: Morphine 2 MG/ML Syringe IV ×4 (15:45→22:56)
[2019-03-27] MEDS: 0.9% NaCl Peripheral Flush Adult/Peds IV ×2 (15:45→17:27)
[2019-03-27] MEDS: Metoclopramide 10 MG/2 ML Vial IV ×2 (15:46→22:57)
[2019-03-27] MEDS: Lactated Ringers 1,000 ML 125 ML IV (17:26)
[2019-03-27] MEDS: metFORMIN (XR) 500 MG Tablet PO (17:26)
[2019-03-27] MEDS: Docusate Sodium 100 MG Capsule PO (21:41)
[2019-03-27] MEDS: Heparin Injection (Vial) 5,000 UNIT/ML VIAL 5000 UNIT SC (22:57)
[2019-03-28 00:41] LABS: Bedside Glucose 209 mg/dL (70-110)
[2019-03-28 01:40] VITALS: BP 146/83; PULSE 98; RESP 18; TEMP 36.6; O2SAT 100
[2019-03-28] MEDS: Morphine 2 MG/ML Syringe IV ×3 (01:58→08:13)
[2019-03-28] MEDS: Lactated Ringers 1,000 ML 125 ML IV (01:58)
[2019-03-28] MEDS: Metoclopramide 10 MG/2 ML Vial IV ×2 (05:50→21:07)
[2019-03-28 05:59] LABS: Hematocrit 34.3 % (37-47); Hemoglobin 11.9 g/dL (12.0-15.0); Mean Corp Hgb Conc 34.7 g/dL (32-36); Mean Corpuscular Hgb 32.3 pg (27.0-32.0); Mean Corpuscular Volume 93.2 fL (81-99); Mean Platelet Vol. 10.1 fl (6.2-12.0); Platelet Count 271 K/mm3 (150-450); RBC Distribution Width SD 41.5 fl (35.1-43.9); Red Blood Count 3.68 M/mm3 (4.2-5.4); White Blood Count 12.5 K/mm3 (4.4-11.0)
[2019-03-28 07:56] VITALS: BP 130/72; PULSE 90; RESP 18; TEMP 36.6; O2SAT 100
[2019-03-28] MEDS: Docusate Sodium 100 MG Capsule PO ×2 (07:59→21:06)
[2019-03-28] MEDS: metFORMIN (XR) 500 MG Tablet PO ×3 (07:59→17:47)
[2019-03-28] MEDS: 0.9% NaCl Peripheral Flush Adult/Peds IV ×2 (08:14→21:06)
[2019-03-28 08:18] VITALS: O2SAT 94
--- NOTE | 2019-03-28 08:24 | PCM.PN.SRG ---
Patient Problems: Active and Suspected Problems (Last Reviewed 03/26/19 @ 13:34 by Soila Mccauley MD) Recurrent ventral hernia (Acute) Subjective: Patient is doing well this morning. She reports no flatus yet but she is tolerating a regular diet. She has no nausea or vomiting. She is complaining of pain at the largest incision site. - Physical Exam General: Alert, Oriented x3 HEENT: Atraumatic Lungs: Normal air movement Cardiovascular: Regular rate, Regular Rhythm Abdomen: Soft, Non-Distended, - - Tender at the largest incision site. Incisions are clean and dry with no ecchymosis or discharge Vital Signs Temp Pulse Resp BP Pulse Ox 97.9 F 90 18 130/72 H 94 03/28/19 07:56 03/28/19 07:56 03/28/19 07:56 03/28/19 07:56 03/28/19 08:18 Oxygen Delivery Method Room Air Weight: 246 lb 11.156 oz Body Mass Index (BMI) 42.3 Finger Stick Blood Glucose 250 Intake and Output for Last 24 Hours 03/26/19 03/27/19 03/28/19 23:59 23:59 23:59 Intake Total 2426 / 3433 1882 / 1882 Output Total 650 / 1300 1650 / 1650 Balance 1776 / 2133 232 / 232 Laboratory Tests Past 24 Hrs 03/28/19 05:28 WBC 12.5 H RBC 3.68 L Hgb 11.9 L Hct 34.3 L MCV 93.2 MCH 32.3 H MCHC 34.7 RDW Std Deviation 41.5 RDW Coeff of Den 12.0 Plt Count 271 MPV 10.1 POC Glucose 03/27/19 03/27/19 21:40 11:37 POC Glucose 209 H 250 H Medical Necessity - Tobacco Use Smoking Status: Former smoker Assessment/Plan All Active Problems (Last Reviewed 03/26/19 @ 13:34 by Soila Mccauley MD) Recurrent ventral hernia (Acute) Preop cardiovascular exam (Acute) Abnormal EKG (Acute) Adnexal mass (Acute) Mural thickening of colon (Acute) 48-year-old female status post robotic assisted hysterectomy, pelvic mass excision, recurrent hernia repair POD 1 1. Patient seems to be doing well this morning. Continue diet as tolerated. I have added stool softeners. Pain control as needed. The patient is doing well later today and her pain is well controlled for discharge and follow-up in 2 weeks. Gordon Del Toro MD Pager: [facility] [address] [place] [address] [phone] [phone] Office:
--- NOTE | 2019-03-28 08:46 | PCM.DC.VHY ---
Discharge Diet: - - NO beef, pork or fresh vegetables x 2 weeks. Protein shakes and smoothies between meals. Increase daily water intake to a minimum of 120 ounces daily. Discharge Activity: Return to Normal Activity, May Not Drive - while taking narcotic pain medications., May Shower May shower in (days): 0 - TODAY May resume sexual activity in: 8 weeks Weight Bearing Status: Full weight bearing Lifting Restrictions: 5 pounds Additional Activity Instructions:: Ambulate frequently with periods of rest in between. Call your doctor if your incision/area has: Sudden Increased Bleeding Call your doctor if you observe: Fever of 101 or Higher, Inability to urinate, Inability to have a bowel movement, Using more than one pad per hour Remove Dressing in (days):: 1 - remove all on 03/29/19 Cleanse incision/area with: Soap & Water Allergies/Adverse Reactions: Allergies bacitracin [From Neosporin ([id number])] Allergy (Intermediate, Verified 03/21/19 11:08) rash neomycin [From Neosporin ([id number])] Allergy (Intermediate, Verified 03/21/19 11:08) rash polymyxin B [From Neosporin ([id number])] Allergy (Intermediate, Verified 03/21/19 11:08) rash nickel Allergy (Mild, Verified 03/21/19 11:08) rash Medications to take at Discharge L norgest/E estradiol-E estrad 0.15 mg-30 mcg (84)/10 mcg(7) tabs,3mos 1 tab PO DAILY 12/14/18 ascorbic acid (vitamin C) 1,000 mg tablet 1 g PO DAILY 12/14/18 multivitamin,gr-nhay-fzkgycva tablet 1 tab PO DAILY 12/14/18 Cetirizine HCl [Zyrtec] 10 mg PO DAILY 01/18/19 albuterol sulfate HFA 90 mcg/actuation aerosol inhaler 2 puff INHALATION Q6H PRN 01/25/19 metformin ER 500 mg tablet,extended release 24 hr 500 mg PO TID tab 01/25/19 lactobacillus combination no.4 3 billion cell capsule 3,000 mmu cells PO DAILY 01/26/19 Glipizide [Glipizide ER] 2.5 mg PO DAILY 03/21/19 Orders to be completed after discharge: Type & Screen Time Frame: 03/27/19, Facility: [facility], Location: Laboratory Primary Care Physician: Juan Portillo MD [Primary Care Provider] - Test Results: Test results from this visit will be discussed in further detail at your follow-up appointment, if applicable. Please Follow Up With: Soila Mccauley MD When: next week - call for appointment
--- NOTE | 2019-03-28 09:15 | PCM.PN.OB ---
Patient Problems: Active and Suspected Problems (Last Reviewed 03/26/19 @ 13:34 by Soila Mccauley MD) Recurrent ventral hernia (Acute) Subjective: Feels well. No flatus. Recent arnold removal. No nausea and no vomiting. - Physical Exam General: No apparent distress, Well developed, Well nourished HEENT: PERRLA, EOMI, Normocephalic Neck: No Nodes, No Nuchal Rigidity, Thyroid Normal Size and Texture Lungs: Clear to auscultation - bilaterally Cardiovascular: Regular rate, No murmurs, No rub noted Abdomen: Soft, Non Tender, Non-Distended, - - No guarding, hepatomegaly, splenomegaly, rebound tenderness. Incisions clear and dry. Extremities: No clubbing, No cyanosis, No edema, No Calf Tenderness Skin: No rashes, Other - No ulcers, lesions Musculoskeletal: No Tenderness to Palpation of Joints or Extremities, No Muscle Wasting Lymphatic: No Cervical, Supraclavicular, or Inguinal Adenopathy Neurological: Cranial nerves II-XII grossly intact Psych/Mental Status: Alert and oriented to time, place, person, mood and affect Vital Signs Temp Pulse Resp BP Pulse Ox 97.9 F 90 18 130/72 H 94 03/28/19 07:56 03/28/19 07:56 03/28/19 07:56 03/28/19 07:56 03/28/19 08:18 Oxygen Delivery Method Room Air Weight: 246 lb 11.156 oz Body Mass Index (BMI) 42.3 Finger Stick Blood Glucose 250 Intake and Output for Last 24 Hours 03/26/19 03/27/19 03/28/19 23:59 23:59 23:59 Intake Total 2426 / 3433 1882 / 1882 Output Total 650 / 1300 1650 / 1650 Balance 1776 / 2133 232 / 232 Laboratory Tests Past 24 Hrs 03/28/19 05:28 WBC 12.5 H RBC 3.68 L Hgb 11.9 L Hct 34.3 L MCV 93.2 MCH 32.3 H MCHC 34.7 RDW Std Deviation 41.5 RDW Coeff of Den 12.0 Plt Count 271 MPV 10.1 POC Glucose 03/27/19 03/27/19 21:40 11:37 POC Glucose 209 H 250 H Medical Necessity - Tobacco Use Smoking Status: Former smoker Assessment/Plan All Active Problems (Last Reviewed 03/26/19 @ 13:34 by Soila Mccauley MD) Recurrent ventral hernia (Acute) Preop cardiovascular exam (Acute) Abnormal EKG (Acute) Adnexal mass (Acute) Mural thickening of colon (Acute) 1. POD #1 - robotic hyst, BSO, enterolysis ambulate once flatus may discharge to home once void may discharge to home reviewed discharge instructions 2. Diabetes Mellitus, type II restart meds diet is reviewed
[2019-03-28] MEDS: Glycerin 1 Suppository 1 SUPP RECTAL (10:02)
[2019-03-28] MEDS: Heparin Injection (Vial) 5,000 UNIT/ML VIAL 5000 UNIT SC (10:02)
[2019-03-28] MEDS: oxyCODONE 5 MG Tablet 10 MG PO ×3 (10:36→19:03)
[2019-03-28 11:31] LABS: Bedside Glucose 222 mg/dL (70-110)
[2019-03-28 14:21] VITALS: BP 152/93; PULSE 100; RESP 18; TEMP 36.6; O2SAT 96
[2019-03-28 19:16] LABS: Bedside Glucose 135 mg/dL (70-110)
[2019-03-28 20:22] VITALS: BP 138/85; PULSE 103; RESP 18; TEMP 36.7; O2SAT 99
[2019-03-29 02:22] VITALS: BP 147/99; PULSE 114; RESP 18; TEMP 37.1; O2SAT 97
[2019-03-29] MEDS: oxyCODONE 5 MG Tablet 10 MG PO (03:57)
[2019-03-29] MEDS: Metoclopramide 10 MG/2 ML Vial IV (05:05)
[2019-03-29] MEDS: 0.9% NaCl Peripheral Flush Adult/Peds IV ×2 (05:05→09:33)
[2019-03-29] MEDS: Ondansetron 4 MG/2 ML Vial IV (09:32)
[2019-03-29 09:37] VITALS: BP 148/98; PULSE 101; RESP 18; TEMP 37.3; O2SAT 98
[2019-03-29 09:46] LABS: Bedside Glucose 190 mg/dL (70-110)
== END 2019-03-29 10:46 | disposition home or self-care (01) ==
LOC: SDC 03-29 09:22
PROVIDERS: Obstetrics & Gynecology; Admitting Provider Surgery; Family Provider Family Medicine; PCP Family Medicine; Referring Provider Surgery; Visit Provider Surgery
PROC: (CPT 49656; principal; 2019-03-27 06:55)
PROC: 0UT94ZZ Resection of Uterus, Percutaneous Endoscopic Approach (ICD-10-PCS; CPT 58573; 2019-03-27 06:55)
DX: D25.1 Intramural leiomyoma of uterus (principal); F32.9 Major depressive disorder, single episode, unspecified; E11.9 Type 2 diabetes mellitus without complications; Z79.84 Long term (current) use of oral hypoglycemic drugs; Z79.899 Other long term (current) drug therapy; Z87.891 Personal history of nicotine dependence; N73.6 Female pelvic peritoneal adhesions (postinfective); K43.2 Incisional hernia without obstruction or gangrene; N80.0 Endometriosis of uterus
CPT/HCPCS: 00940; 49656; 58546; 58573; S2900; 36415; 80048; 81025; 82962; 83036; 85027; 85610; 85730; 86850; 86900; 88305; 88309; 88331; 96361; 96365; 96366; 96372; 96375; 96376; 99218; J7120; A4216; C1760; G0378; G0379; J2405

== ENCOUNTER → 2019-05-19 07:10 | Outpatient (CLI) | payer OTHER, SELFPAY ==
[2019-04-10 13:29] VITALS: BMI 42.3
--- NOTE | 2019-05-19 07:11 | CT_ITS ---
STUDY: CT ABDOMEN AND PELVIS WITHOUT CONTRAST REASON FOR EXAM: Female, 49 years old. Abdominal bulge, status post ventral hernia repair and extension of abdominal mass. There RADIATION DOSAGE (If Supplied By Facility): CTDIvol = ( 23.52 ) mGy, DLP = ( 1304.39 ) mGycm TECHNIQUE: Transaxial images were obtained from the dome of the diaphragm to the symphysis pubis without oral contrast, and without intravenous contrast. Sagittal and coronal images were reconstructed. Individualized dose optimization techniques were used for this CT. COMPARISON: 11/14/2018. FINDINGS: The visualized lung bases are unremarkable. The visualized portions of the heart are within normal limits. The liver is borderline in size. No focal lesion is seen on this noncontrast examination. There are surgical clips in the gallbladder fossa consistent with a prior cholecystectomy. The spleen is prominent in size measuring by 13.5 cm. Normal pancreas. Normal bilateral adrenal glands. Normal right kidney. Normal left kidney. Normal visualized stomach. Normal small intestine. There is fecal retention. There is diverticulosis of the sigmoid colon. There is no evidence of acute diverticulitis. There are few small normal sized mesenteric nodes. The appendix is visualized and appears normal. Normal abdominal aorta. Normal inferior vena cava. Normal retroperitoneum. The urinary bladder is suboptimally distended. There is absence of the uterus consistent with a prior hysterectomy. The previously noted pelvic mass has been excised. There are multiple pelvic calcifications consistent with phleboliths. There is a small umbilical hernia containing fat. There is mild stranding in subcutaneous fat of the adjacent abdominal wall. There are degenerative changes in the lumbar spine at the level of L5-S1. CT/Abdomen/Pelvis without Cont IMPRESSION: 1. Status post hysterectomy and excision of pelvic mass. 2. Borderline hepatosplenomegaly. 3. Status post cholecystectomy. 4. Small umbilical hernia containing fat. 5. Otherwise no demonstrated acute process since the previous examination. Electronically Signed: Lexa Branch MD at 8:37 EDT Tel , Service support ,
== END ==
PROVIDERS: Family Provider Family Medicine; PCP Family Medicine; Referring Provider Surgery; Visit Provider Surgery
DX: K43.2 Incisional hernia without obstruction or gangrene (principal)
CPT/HCPCS: 74176

== ENCOUNTER → 2019-07-18 08:34 | Outpatient (CLI) | payer OTHER, SELFPAY ==
[2019-07-18 08:06] VITALS: BMI 42.3
[2019-07-18 10:55] LABS: Estradiol < 11.0 pg/mL
[2019-07-19 03:07] LABS: DHEA Sulfate 42.8 ug/dL (41.2-243.7)
[2019-07-19 14:50] LABS: Sex Hormone-binding Globulin 39.3 nmol/L (24.6-122.0)
== END ==
PROVIDERS: Visit Provider Obstetrics & Gynecology
DX: N95.1 Menopausal and female climacteric states (principal); N94.3 Premenstrual tension syndrome
CPT/HCPCS: 36415; 82533; 82627; 82670; 84270; 84403; 82626

== ENCOUNTER 2019-08-20 11:17 | Day surgery (SDC) | payer OTHER, SELFPAY ==
[2019-07-18 08:06] VITALS: BMI 42.3
--- NOTE | 2019-07-18 09:58 | HP_ITS ---
Intake Vital Signs 07/18/19 Body Mass Index (BMI) 42.3 Intake Visit Reasons: Umbilical Hernia Chief Complaint: ventral hernia repair, lap hyster Corporate Safety Director Required: No Is patient in pain?: No Allergies bacitracin [From Neosporin ([id number])] Allergy (Intermediate, Verified 07/18/19 08:05) rash neomycin [From Neosporin ([id number])] Allergy (Intermediate, Verified 07/18/19 08:05) rash polymyxin B [From Neosporin ([id number]-[id number])] Allergy (Intermediate, Verified 07/18/19 08:05) rash nickel Allergy (Mild, Verified 07/18/19 08:05) rash Medications L norgest/E estradiol-E estrad 0.15 mg-30 mcg (84)/10 mcg(7) tabs,3mos 1 tab PO DAILY 12/14/18 [History Confirmed 07/18/19] ascorbic acid (vitamin C) 1,000 mg tablet 1 g PO DAILY 12/14/18 [History Confirmed 07/18/19] multivitamin,ly-yvlm-kdpselbz tablet 1 tab PO DAILY 12/14/18 [History Confirmed 07/18/19] Cetirizine HCl [Zyrtec] 10 mg PO DAILY 01/18/19 [History Confirmed 07/18/19] albuterol sulfate HFA 90 mcg/actuation aerosol inhaler 2 puff INHALATION Q6H PRN 01/25/19 [History Confirmed 07/18/19] metformin ER 500 mg tablet,extended release 24 hr 500 mg PO TID tab 01/25/19 [History Confirmed 07/18/19] lactobacillus combination no.4 3 billion cell capsule 3,000 mmu cells PO DAILY 01/26/19 [History Confirmed 07/18/19] Glipizide [Glipizide ER] 2.5 mg PO DAILY 03/21/19 [History Confirmed 07/18/19] Docusate Sodium [Colace] 100 mg PO BID #30 cap 03/28/19 [Rx Confirmed 07/18/19] Ibuprofen [Motrin] 800 mg PO TID PRN PRN #60 tab 03/28/19 [Rx Confirmed 07/18/19] PFSH Medical History Adnexal mass (Acute) History of depression (Chronic) Type 2 diabetes mellitus without complication (Chronic) Surgical History History of colonoscopy (Acute ~12/2018) Status post laparoscopy (Acute) History of section (Resolved) History of cholecystectomy (Resolved) History of hernia repair (Resolved) Family History Father Asthma Grandfather Cancer lung Grandmother Alzheimer disease Grandfather COPD (chronic obstructive pulmonary disease) Social History (Updated 07/18/19 @ 09:58 by Gordon Del Toro MD) Smoking Status: Former smoker quit date: 08/12/95 alcohol intake: never caffeine: Yes Type: carbonated beverages, tea HPI HPI HPI: JAIME BUSTILLOS, is a 49 F who presents to the office today for HPI HPI Surgical H&P: Yes HPI: JAIME BUSTILLOS, is a 49 F who presents to the office today for Recurrent ventral hernia. The patient had robotic hysterectomy with primary ventral hernia repair this year. She notes that she is had continuing bulging near her umbilicus. ROS General General: Yes fatigue; no weight change, appetite, colon cancer, breast cancer or weakness HEENT HEENT: No difficulty swallowing, eye injury, eye surgery, swollen glands or hoarseness Endo Endocrine: Yes diabetes mellitus; no thyroid disease, thyroid cancer, Hair loss, heat intolerance or cold intolerance Cardio Cardiovascular: No murmur, pacemaker, heart disease, atrial fibrillation, high blood pressure, heart attack, heart stent, palpitations, shortness of breat with exertion or chest pain Resp Respiratory: No shortness of breath, No sleep apnea, No cough, No COPD, No asthma, No emphysema, No wheezing Gastro Gastrointestinal: No abdominal pain, No nausea or vomiting, Yes diarrhea, No constipation, No blood in stool, No acid reflux, No hemorrhoids, No ulcers, No gallbladder problem, No black,tarry stools Neuro Neurologic: No weakness Exam Const General: cooperative Orientation: alert, oriented x3 Resp Effort & Inspection: normal respiratory effort Auscultation: clear to auscultation bilaterally Cardio Rate: regular rate Rhythm: regular rhythm Heart Sounds: no murmurs GI Inspection: non-distended Palpation: soft, nontender Assessment & Plan Problems 1. Recurrent ventral hernia K43.2 Plan I saw the patient for umbilical bulging and ordered a CT scan. The location of her superior hernia appears to still be intact at the fascial level. She does have hernia more inferiorly where she has already had 2 previous repairs. She says this is bothering her would like this repaired. During her previous hysterectomy I repaired a more superior ventral hernia without mesh due to the contamination of the procedure. I discussed robotic assisted ventral hernia repair with mesh. I would like to reduce the lower hernia and repair it. I would like to bridge both defects with mesh for increased strength and durability. I discussed attempting preperitoneal repair with mesh placement. The back-up plan would be intraperitoneal placement of mesh. I also discussed open procedure. I discussed the risks including but not limited to bleeding, infection, injury to underlying bowel, recurrence of hernia. The patient understands the risks and is willing to proceed. Gordon Del Toro MD Pager: [facility] [address] [place] [address], [address] [place] [address] Office: Coding Level of Care Code Off vis,est,level 3 Diagnoses Recurrent ventral hernia K43.2 07/18/19 0958 <Electronically signed by Gordon palmer MD> Date _ Gordon Del Toro MD I have re-examined the patient. There are no clinical changes since date of exam.
--- NOTE | 2019-07-18 09:58 | HP_ITS ---
Intake Vital Signs 07/18/19 Body Mass Index (BMI) 42.3 Intake Visit Reasons: Umbilical Hernia Chief Complaint: ventral hernia repair, lap hyster Licensed Prosthetist/Orthotist Required: No Is patient in pain?: No Allergies bacitracin [From Neosporin ([id number]-bkv-[id number])] Allergy (Intermediate, Verified 07/18/19 08:05) rash neomycin [From Neosporin ([id number]-isz-[id number])] Allergy (Intermediate, Verified 07/18/19 08:05) rash polymyxin B [From Neosporin ([id number]-qbbbx)] Allergy (Intermediate, Verified 07/18/19 08:05) rash nickel Allergy (Mild, Verified 07/18/19 08:05) rash Medications L norgest/E estradiol-E estrad 0.15 mg-30 mcg (84)/10 mcg(7) tabs,3mos 1 tab PO DAILY 12/14/18 [History Confirmed 07/18/19] ascorbic acid (vitamin C) 1,000 mg tablet 1 g PO DAILY 12/14/18 [History Confirmed 07/18/19] multivitamin,jh-hvtp-lbbvpxdt tablet 1 tab PO DAILY 12/14/18 [History Confirmed 07/18/19] Cetirizine HCl [Zyrtec] 10 mg PO DAILY 01/18/19 [History Confirmed 07/18/19] albuterol sulfate HFA 90 mcg/actuation aerosol inhaler 2 puff INHALATION Q6H PRN 01/25/19 [History Confirmed 07/18/19] metformin ER 500 mg tablet,extended release 24 hr 500 mg PO TID tab 01/25/19 [History Confirmed 07/18/19] lactobacillus combination no.4 3 billion cell capsule 3,000 mmu cells PO DAILY 01/26/19 [History Confirmed 07/18/19] Glipizide [Glipizide ER] 2.5 mg PO DAILY 03/21/19 [History Confirmed 07/18/19] Docusate Sodium [Colace] 100 mg PO BID #30 cap 03/28/19 [Rx Confirmed 07/18/19] Ibuprofen [Motrin] 800 mg PO TID PRN PRN #60 tab 03/28/19 [Rx Confirmed 07/18/19] PFSH Medical History Adnexal mass (Acute) History of depression (Chronic) Type 2 diabetes mellitus without complication (Chronic) Surgical History History of colonoscopy (Acute ~12/2018) Status post laparoscopy (Acute) History of section (Resolved) History of cholecystectomy (Resolved) History of hernia repair (Resolved) Family History Father Asthma Grandfather Cancer lung Grandmother Alzheimer disease Grandfather COPD (chronic obstructive pulmonary disease) Social History (Updated 07/18/19 @ 09:58 by Gordon Del Toro MD) Smoking Status: Former smoker quit date: 08/12/95 alcohol intake: never caffeine: Yes Type: carbonated beverages, tea HPI HPI HPI: JAIME BUSTILLOS, is a 49 F who presents to the office today for HPI HPI Surgical H&P: Yes HPI: JAIME BUSTILLOS, is a 49 F who presents to the office today for Recurrent ventral hernia. The patient had robotic hysterectomy with primary ventral hernia repair this year. She notes that she is had continuing bulging near her umbilicus. ROS General General: Yes fatigue; no weight change, appetite, colon cancer, breast cancer or weakness HEENT HEENT: No difficulty swallowing, eye injury, eye surgery, swollen glands or hoarseness Endo Endocrine: Yes diabetes mellitus; no thyroid disease, thyroid cancer, Hair loss, heat intolerance or cold intolerance Cardio Cardiovascular: No murmur, pacemaker, heart disease, atrial fibrillation, high blood pressure, heart attack, heart stent, palpitations, shortness of breat with exertion or chest pain Resp Respiratory: No shortness of breath, No sleep apnea, No cough, No COPD, No asthma, No emphysema, No wheezing Gastro Gastrointestinal: No abdominal pain, No nausea or vomiting, Yes diarrhea, No constipation, No blood in stool, No acid reflux, No hemorrhoids, No ulcers, No gallbladder problem, No black,tarry stools Neuro Neurologic: No weakness Exam Const General: cooperative Orientation: alert, oriented x3 Resp Effort & Inspection: normal respiratory effort Auscultation: clear to auscultation bilaterally Cardio Rate: regular rate Rhythm: regular rhythm Heart Sounds: no murmurs GI Inspection: non-distended Palpation: soft, nontender Assessment & Plan Problems 1. Recurrent ventral hernia K43.2 Plan I saw the patient for umbilical bulging and ordered a CT scan. The location of her superior hernia appears to still be intact at the fascial level. She does have hernia more inferiorly where she has already had 2 previous repairs. She says this is bothering her would like this repaired. During her previous hysterectomy I repaired a more superior ventral hernia without mesh due to the contamination of the procedure. I discussed robotic assisted ventral hernia repair with mesh. I would like to reduce the lower hernia and repair it. I would like to bridge both defects with mesh for increased strength and durability. I discussed attempting preperitoneal repair with mesh placement. The back-up plan would be intraperitoneal placement of mesh. I also discussed open procedure. I discussed the risks including but not limited to bleeding, infection, injury to underlying bowel, recurrence of hernia. The patient understands the risks and is willing to proceed. Gordon Del Toro MD Pager: [facility] [address] [place] [address], [address] [place] [address] Office: Coding Level of Care Code Off vis,est,level 3 Diagnoses Recurrent ventral hernia K43.2 07/18/19 0958 <Electronically signed by Gordon palmer MD> Date _ Gordon Del Toro MD
[2019-08-20] VITALS (14 sets, daily range): BP systolic 101–155; BP diastolic 56–80; PULSE 77–101; RESP 16; TEMP 36.3–37.1; O2SAT 92–100; BMI 48.2
[2019-08-20 12:01] LABS: Bedside Glucose 107 mg/dL (70-110)
[2019-08-20] MEDS: Lactated Ringers 1,000 ML 100 ML IV (12:10)
--- NOTE | 2019-08-20 13:20 | HERN_PTH ---
PATIENT: JAIME BUSTILLOS LOC: [facility] [place] U#:[id number] AGE/SX: 49/F ROOM: RE08/20/[address]: Dr. Gordon Del Toro MD : 1970 BED: DIS: 08/21/2019 SPEC #: [id number] RECD: 08/20/19 17:00 STATUS: YANELI LINDA #: [id number] ANTONIA: 08/20/19 13:[address]: Gordon Del Toro DEPT: SURGICAL PATHOLOGY RECD BY: Shana Barnard ENTERED: 08/21/19 10:48 SP TYPE: Hernia OTHR DR: Dr. Juan Portillo MD Tissues: HERNIA Procedures: Surgery Specimen Level II HEADER OPERATION: Lap robotic recurrent ventral hernia with mesh PRE-OP DIAGNOSIS: Recurrent ventral hernia K43.2 TISSUE SUBMITTED: Hernia sac MICROSCOPIC DIAGNOSIS Hernia, herniorrhaphy: Benign fibrosis and mild chronic inflammation. AM:sp 08/22/19 MICROSCOPIC DESCRIPTION Slides are reviewed. GROSS DESCRIPTION Received is one container labeled with the patient name and designated hernia sac. The specimen consists of three irregular fragments of glistening pink-yellow soft tissue that in aggregate measure 7 x 5 x 2 cm. Serially sections did not reveal mass lesions. Web Development Intern sections are submitted in one cassette. / AM:sp 08/21/19 TC: 3 CPT: 11845
[2019-08-20] MEDS: Bupivacaine Mpf 0.5% 30 ML VIAL (16:11)
--- NOTE | 2019-08-20 16:24 | PCM.OPRPT ---
Problem List (1) Recurrent ventral hernia Status: Acute Report of Operation Date of Procedure: 08/20/19 Pre-Operative Diagnosis: Recurrent ventral hernias Post-Operative Diagnosis: Same Surgery/Procedure Performed:: Robotic assisted laparoscopic recurrent ventral hernia repair with mesh Specimen's removed: Hernia sac Estimated Blood Loss (mL): 10 Description of Procedure: Patient was brought back to the operating room and general anesthesia was induced. Arreaga catheter was placed. Next an incision was made in the left upper quadrant and a 5 mill meter port was placed using Visiport technique. The abdomen was insufflated to 15 mmHg. Next in the left lower quadrant and left lateral quadrant and left upper quadrant 8 mm robotic ports were placed under direct visualization. The robot was then docked. Attention was paid to the adhesions to her former mesh. Using electrocautery the adhesions were taken down until the hernia contents and abdominal contents were free of the abdominal wall. Next the larger superior hernia sac was reduced into the abdomen and removed. The lower recurrent hernia sac was also reduced. Next the lower defect was closed with a running 0 V lock suture which was run forward and backward transversely to close the defect. In the same fashion the superior defect was closed with an 0 V lock suture. Once the hernia defects were closed the distance of the defect was measured. There were several small Norwegian cheese defects between the 2 largest defects. A 12 mm port was placed in the midline of the abdomen under direct visualization. An 8 x 10 in piece of ventralight ST mesh was placed through the 12 mm port and unfolded. The balloon was lifted through the port and inflated. This kept the mesh in place. Next using 0 Vicryl suture the left side of the mesh was secured in place with a running suture. Next several small interrupted sutures were placed in the middle of the mesh. The balloon was then removed from the mesh. Next a long 0 Vicryl suture was used to suture the right side of the mesh to the abdominal wall in a running continuous fashion. This was sutured to the other suture from the other side. This allowed for fully continuous adhesion of the mesh to the abdominal wall with no gaps. The mesh was in good position and fully covered all the defects. The abdomen was then slowly desufflated and the mesh was inspected. It appeared to have good coverage. The robot was undocked and the ports were removed. The incisions were injected with local anesthetic and closed with interrupted 4-0 Monocryl sutures as well as Steri-Strips and bandages. Arreaga catheter was removed at the end the case. Patient tolerated the procedure well. Grafts/Implants Used: 8 x [address] mesh - Admit VTE Documentation VTE Mechan Device Prophylaxis: SCD's
--- NOTE | 2019-08-20 16:29 | PCM.DC.HER ---
Discharge Diet: Light diet - advance as tolerated Discharge Activity: Return to Normal Activity, May Not Drive - for 2-3 days or while taking narcotic pain meds., May Shower - with the bandage in place 1-2 days after surgery. Lifting Restrictions: 20 pounds for 6 weeks. Additional Activity Instructions:: Climbing stairs is fine, walking is encouraged. Sitting in bed may be uncomfortable. Sitting up using your lateral muscles (sitting up sideways) is usually more comfortable. Do not drive, work heavy equipment of sign legal documents for 24 hours. Pain medications may cause nausea, you should typically eat light foods as you take your pain medications. Pain medications may also cause constipation. If you have difficulty with this, discuss with your doctor. Call your doctor if your incision/area has: Continuous Slow Oozing, Sudden Increased Bleeding, Increased Pain/ Swelling, Increased Redness, Foul Smelling Discharge Call your doctor if you observe: Fever of 101 or Higher Suture Line Care: Avoid Pulling/Pushing, Avoid Pinching/Bending Change Dressing in (Days):: 3 - Leave steri-strips for 1 week. May protect with a guaze bandaid. Cleanse incision/area with: Keep Dressing Clean & Dry Allergies/Adverse Reactions: Allergies bacitracin [From Neosporin ([id number])] Allergy (Intermediate, Verified 08/20/19 11:47) rash neomycin [From Neosporin (wyj-zbt-xrobj)] Allergy (Intermediate, Verified 08/20/19 11:47) rash polymyxin B [From Neosporin ([id number]-ega-ezyjr)] Allergy (Intermediate, Verified 08/20/19 11:47) rash nickel Allergy (Mild, Verified 08/20/19 11:47) rash Medications to take at Discharge ascorbic acid (vitamin C) 1,000 mg tablet 1 g PO DAILY 12/14/18 multivitamin,lc-rfub-qwcyzzau tablet 1 tab PO DAILY 12/14/18 Cetirizine HCl [Zyrtec] 10 mg PO DAILY 01/18/19 metformin ER 500 mg tablet,extended release 24 hr 500 mg PO TID tab 01/25/19 Glipizide [Glipizide ER] 2.5 mg PO DAILY 03/21/19 Estradiol [Vivelle-Dot, Estraderm,] 0.025 mg TRANSDERM. QWEEK 08/13/19 Progesterone, Micronized [Progesterone] 100 mg PO DAILY 08/13/19 Oxycodone HCl/Acetaminophen [Percocet 5/325] 1 - 2 tablet PO Q4H PRN PRN 7 Days #40 tablet 08/20/19 The following prescriptions were given: Oxycodone HCl/Acetaminophen [Percocet 5/325] 1 - 2 tablet PO Q4H PRN PRN 7 Days #40 tablet PRN Reason: Pain Transmission Status: Sent to [facility] Primary Care Physician: Juan Portillo MD [Primary Care Provider] - Test Results: Test results from this visit will be discussed in further detail at your follow-up appointment, if applicable. Please Follow Up With: Gordon Del Toro MD When: Please call to schedule 2 week follow up appointment. [phone]
[2019-08-20 17:20] LABS: Bedside Glucose 212 mg/dL (70-110)
[2019-08-20] MEDS: 0.9% Normal Saline 1,000 ML 75 ML IV (19:32)
[2019-08-20] MEDS: oxyCODONE 5 MG Tablet PO (21:29)
[2019-08-20] MEDS: Docusate Sodium 100 MG Capsule PO (21:35)
[2019-08-20 22:10] LABS: Bedside Glucose 172 mg/dL (70-110)
[2019-08-20] MEDS: Ondansetron 4 MG/2 ML Vial IV (23:20)
[2019-08-21] MEDS: Morphine 2 MG/ML Syringe IV ×2 (00:12→06:03)
[2019-08-21] MEDS: Acetaminophen 325 MG Tablet 650 MG PO (01:38)
[2019-08-21 04:03] VITALS: BP 143/77; PULSE 100; RESP 16; TEMP 36.4; O2SAT 100
[2019-08-21] MEDS: Ketorolac 15 MG/ML Vial IV (04:08)
[2019-08-21] MEDS: HYDROcodone Bitartrate/Apap 5/325 Tablet PO ×2 (08:15→13:26)
[2019-08-21] MEDS: metFORMIN (XR) 500 MG Tablet PO ×2 (08:15→13:24)
[2019-08-21 08:16] LABS: Bedside Glucose 131 mg/dL (70-110)
[2019-08-21] MEDS: Ascorbic Acid 500 MG Tablet 1000 MG PO (08:16)
[2019-08-21] MEDS: Multivitamins,Ther W-Minerals Tablet 1 TABLET PO (08:16)
[2019-08-21] MEDS: Docusate Sodium 100 MG Capsule PO (08:16)
[2019-08-21 10:00] VITALS: BP 126/80; PULSE 98; RESP 18; TEMP 36.7; O2SAT 98
[2019-08-21 11:46] LABS: Bedside Glucose 160 mg/dL (70-110)
[2019-08-21] MEDS: LORazepam 1 MG Tablet PO (11:51)
== END 2019-08-21 15:18 | disposition home or self-care (01) ==
LOC: SDC 11:17 → AC 11:19 → MS3 18:31
PROVIDERS: Family Provider Family Medicine; PCP Family Medicine; Referring Provider Surgery; Visit Provider Surgery
PROC: (CPT 49652; principal; 2019-08-20 12:55)
DX: K43.2 Incisional hernia without obstruction or gangrene (principal); E11.9 Type 2 diabetes mellitus without complications; Z79.1 Long term (current) use of non-steroidal anti-inflammatories (NSAID); Z79.84 Long term (current) use of oral hypoglycemic drugs; Z79.899 Other long term (current) drug therapy; Z87.891 Personal history of nicotine dependence
CPT/HCPCS: 00752; 49652; 82962; 88302; 99251; J7030; J7120; G0463; J2405

== ENCOUNTER → 2019-11-13 07:36 | Outpatient (CLI) | payer OTHER, SELFPAY ==
[2019-08-20 19:25] VITALS: BMI 48.2
--- NOTE | 2019-11-13 07:40 | BI_ITS ---
MAMMOGRAPHY - BILATERAL SCREENING REASON FOR EXAM: Female, 49 years old. Routine annual screening examination. PERTINENT HISTORY: Non-contributory. TECHNIQUE: Digital bilateral breast giovany (3D mammographic acquisition) in the CC and MLO projections. 2-D mediolateral oblique (MLO) and craniocaudad (CC) views of both breasts were obtained. CAD: Full Field Digital Mammography with Computer Added Detection was performed. COMPARISON: Comparison is made with prior examination dated June 01, 2019 and October 12, 2017. FINDINGS: Breast Composition: The breasts are almost entirely fatty. There are no dominant masses or suspicious calcifications. Stable small bilateral benign-appearing axillary lymph nodes. No other significant abnormalities are identified. There has been no significant change since the prior study. BI/SCREEN MAMM (CAD) W/GIOVAYN BILAT IMPRESSION: Stable bilateral screening mammogram. Yearly follow-up mammogram recommended. (A) ASSESSMENT CATEGORY: BIRADS Category 2: Benign. A letter regarding these results will be sent to the patient by the facility within 30 days. Approximately 10% of breast cancers are not detected by mammography. A normal mammogram should not delay biopsy of a clinically suspicious abnormality. [id number] Electronically Signed: Cristian Sellers, at 10:03 EST , Service support ,
== END ==
PROVIDERS: Family Provider Family Medicine; PCP Family Medicine; Referring Provider Obstetrics & Gynecology; Visit Provider Obstetrics & Gynecology
DX: Z12.31 Encounter for screening mammogram for malignant neoplasm of breast (principal)
CPT/HCPCS: 77063; 77067

== ENCOUNTER 2019-11-13 09:40 | Emergency (ER) | payer OTHER, SELFPAY ==
[2019-08-20 19:25] VITALS: BMI 48.2
[2019-11-13 09:41] VITALS: BP 166/93; PULSE 112; RESP 16; TEMP 36.1; O2SAT 99; BMI 48.9
--- NOTE | 2019-11-13 10:04 | EKG12_ITS ---
Test Reason : HYPERTENSION Blood Pressure : / mmHG Vent. Rate : 097 BPM Atrial Rate : 097 BPM P-R Int : 154 ms QRS Dur : 084 ms QT Int : 350 ms P-R-T Axes : 050 001 031 degrees QTc Int : 444 ms Normal sinus rhythm Cannot rule out Anterior infarct (cited on or before 18-JAN-2019) Abnormal ECG Confirmed by FREDERICK MAGAÑA ([id number]), editor continuity and script CLAUDIA GOMEZ ([id number]) on 11/14/2019 2:31:09 PM Referred By: LATESHA/NILDA Confirmed By:FREDERICK MAGAÑA
[2019-11-13 10:38] LABS: Absolute Lymphocyte Count 2.14 X10^3/uL (0.83-4.51); Absolute Neutrophil Count 6.3 X10^3/uL (2.0-7.7); Basophil# 0.05 X10^3/uL; Basophil% 0.5 % (0-1); Eosinophil# 0.16 X10^3/uL; Eosinophils% 1.8 % (0-5); Hematocrit 40.1 % (37-47); Lymphocyte # 2.14 X10^3/ul (4.0); Lymphocyte % 23.5 % (19-41); Mean Corp Hgb Conc 34.9 g/dL (32-36); Mean Corpuscular Hgb 30.7 pg (27.0-32.0); Mean Corpuscular Volume 87.9 fL (81-99); Mean Platelet Vol. 9.6 fl (6.2-12.0); Monocyte# 0.41 X10^3/uL; Monocyte% 4.5 % (0-10); NRBC Flagged by Analyzer 0 % (0-5); Neutrophil # 6.33 X10^3/uL (2.7-7.7); Neutrophil % 69.4 % (47-70); Platelet Count 288 K/mm3 (150-450); RBC Distribution Width CV 12.6 % (11.6-14.6); Red Blood Count 4.56 M/mm3 (4.2-5.4); White Blood Count 9.1 K/mm3 (4.4-11.0)
[2019-11-13 10:58] LABS: Anion Gap 7 (5-15); BUN 13 mg/dL (7-18); BUN/Creat Ratio 17.3 RATIO (10-20); Calcium,Total 10.1 mg/dL (8.5-10.1); Chloride 107 mmol/L (98-107); Creatinine, Serum 0.75 mg/dL (0.55-1.02); EST Glomerular Filtration Rate 87 mL/min (>60); Est Glom Filt Rate - Afr Amer 105 mL/min (>60); Estimated Creatinine Clearance 78.35 ml/min; Glucose 143 mg/dL (74-106); Potassium 3.8 mmol/L (3.5-5.1); Sodium Level 140 mmol/L (136-145)
--- NOTE | 2019-11-13 11:25 | ED.VISSUMM ---
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 Patient states that her blood pressure there was 188/110. Patient was then referred to the emergency department for further evaluation of her blood pressure. Patient denies any symptoms. Patient denies any chest pain or shortness of breath. Patient denies any nausea or vomiting. Patient denies any headaches. Patient does admit to some urinary frequency but denies any dysuria or hematuria. Physical Examination: Vital signs are stable for mild tachycardia of 112. Patient blood pressure is 166/93. Patient is afebrile. Patient is in no acute distress. Oral mucosa is pink and moist. Neck is supple. Trachea is midline. There is no JVD. Heart was regular rate and rhythm. Lungs are clear and equal bilaterally. Abdomen is soft. Bowel sounds are normal. There is no tenderness. Cranial nerves II through XII are intact. There are no focal motor or sensory deficits noted. Extremities are intact. There is no calf tenderness or edema. Test Results: EKG showed normal sinus rhythm with a rate of 97. There are no acute ST or T wave changes. This was unchanged compared to previous EKG dated 01/18/2019. CBC, basic metabolic profile, and troponin were obtained were within normal limits. Emergency Department Course and Treatment: Patient had no further symptoms here in the emergency department. Patient's repeat blood pressure is 163/111. Patient was advised to keep a log of her blood pressures and follow-up with her primary care physician in 5 to 7 days. Patient was instructed to return if she developed any symptoms. Patient understood and was agreeable with the plan. All questions were answered. Disposition: Discharge home Impression: Elevated blood pressure This note was generated with [employer] dictation software. It may contain incorrect words, spelling, and punctuation that were not noted in review of the chart prior to signing ED Disposition - Plan for ED Patient: Disposition: Home or Assisted Living Diagnosis: Hypertension Instructions: HYPERTENSION, To Be Confirmed Referrals: Juan Portillo MD [Primary Care Provider] - 3-5 Days Additional Instructions: Keep a daily log of your blood pressures. Follow-up with your primary care physician for further management of your blood pressure.
[2019-11-13 11:34] VITALS: BP 161/113; RESP 16
--- NOTE | 2019-11-13 11:34 | ED.RN ---
REVIEWED D/C INSTRUCTIONS, FOLLOW UP CARE, AND S/S THAT WOULD WARRANT A RETURN TO THE ED WITH PT. PT VERBALIZED AN UNDERSTANDING AND DENIES FURTHER QUESTIONS FOR THIS RN. PT SKIN P/W/D, RESP EVEN AND UNLABORED, PT A&O X 3, NO DISTRESS NOTED. PT AMBULATED OUT OF ED, GAIT STEADY.
== END 2019-11-13 11:35 | disposition home or self-care (01) ==
PROVIDERS: Emergency Provider Emergency Medicine; PCP Family Medicine
DX: I10 Essential (primary) hypertension (principal); E11.9 Type 2 diabetes mellitus without complications; Z87.891 Personal history of nicotine dependence
CPT/HCPCS: 80048; 84484; 85025; 93005; 99283; A4216

== ENCOUNTER → 2021-05-05 07:52 | Outpatient (CLI) | payer OTHER, SELFPAY ==
--- NOTE | 2021-05-05 07:54 | BI_ITS ---
MAMMOGRAPHY - BILATERAL SCREENING REASON FOR EXAM: Female, 50 years old. Routine annual screening examination. PERTINENT HISTORY: Non-contributory. TECHNIQUE: Digital bilateral breast giovany (3D mammographic acquisition) in the CC and MLO projections. 2-D mediolateral oblique (MLO) and craniocaudad (CC) views of both breasts were obtained. CAD: Full Field Digital Mammography with Computer Added Detection was performed. COMPARISON: Comparison is made with prior study dated 11/13/2019 and 11/09/2018. FINDINGS: Breast Composition: The breasts are almost entirely fatty. There are no dominant masses or suspicious calcifications. Stable small benign-appearing bilateral axillary lymph nodes. No other significant abnormalities are identified. There has been no significant change since the prior study. BI/SCRN MAMM (CAD)W/GIOVANY BILAT IMPRESSION: Stable bilateral screening mammogram. Yearly follow-up mammogram recommended. (A) ASSESSMENT CATEGORY: BIRADS Category 2: Benign. A letter regarding these results will be sent to the patient by the facility within 30 days. Approximately 10% of breast cancers are not detected by mammography. A normal mammogram should not delay biopsy of a clinically suspicious abnormality. [id number] Electronically Signed: Cristian Sellers MD at 9:22 EDT , Service support ,
== END ==
PROVIDERS: PCP Family Medicine; Referring Provider Obstetrics & Gynecology; Visit Provider Obstetrics & Gynecology
DX: Z12.31 Encounter for screening mammogram for malignant neoplasm of breast (principal)
CPT/HCPCS: 77063; 77067

== ENCOUNTER → 2022-06-18 | Outpatient (CLI) | payer OTHER, SELFPAY ==
--- NOTE | 2022-06-18 07:06 | BI_ITS ---
MAMMOGRAPHY - BILATERAL SCREENING REASON FOR EXAM: Female, 52 years old. Routine annual screening examination. PERTINENT HISTORY: Non-contributory. TECHNIQUE: Digital bilateral breast giovany (3D mammographic acquisition) in the CC and MLO projections. 2-D mediolateral oblique (MLO) and craniocaudad (CC) views of both breasts were obtained. CAD: Full Field Digital Mammography with Computer Added Detection was performed. COMPARISON: Comparison is made with prior study dated 05/05/2021 and 11/13/2019. FINDINGS: Breast Composition: The breasts are almost entirely fatty. There are no dominant masses or suspicious calcifications. Stable small benign appearing bilateral axillary lymph nodes. No other significant abnormalities are identified. There has been no significant change since the prior study. BI/SCRN MAMM (CAD)W/GIOVANY BILAT IMPRESSION: Stable bilateral screening mammogram. Yearly follow-up mammogram recommended. (A) ASSESSMENT CATEGORY: BIRADS Category 2: Benign. A letter regarding these results will be sent to the patient by the facility within 30 days. Approximately 10% of breast cancers are not detected by mammography. A normal mammogram should not delay biopsy of a clinically suspicious abnormality. [id number] Electronically Signed: Cristian Sellers MD at 8:27 EDT ,
== END | disposition home or self-care (01) ==
PROVIDERS: PCP Family Medicine; Referring Provider Student in an Organized Health Care Education/Training Program; Visit Provider Student in an Organized Health Care Education/Training Program
DX: Z12.31 Encounter for screening mammogram for malignant neoplasm of breast (principal)
CPT/HCPCS: 77063; 77067

== ENCOUNTER → 2022-12-24 | Outpatient (CLI) | payer OTHER, SELFPAY ==
--- NOTE | 2022-12-24 09:30 | RAD_ITS ---
STUDY: X-RAY - SACROILIAC JOINTS REASON FOR EXAM: Female, 52 years old. PAIN -- PAIN OF LEFT SACROILIAC JOINT TECHNIQUE: 3 view(s) of the sacroiliac joints were obtained. COMPARISON: None. FINDINGS: Normal bilateral sacroiliac joints. Normal visualized sacral ala and sacrum. Normal visualized iliac bones. Normal visualized soft tissue structures. RAD/S-I Jts 3 or More Views IMPRESSION: Normal SI joints for age. Electronically Signed: Tony Jensen MD at 10:07 EDT ,
== END | disposition home or self-care (01) ==
PROVIDERS: PCP Family Medicine; Visit Provider Family Medicine
DX: R10.2 Pelvic and perineal pain (principal)
CPT/HCPCS: 72202

== ENCOUNTER → 2023-06-20 | Outpatient (CLI) | payer OTHER, SELFPAY ==
--- NOTE | 2023-06-20 07:11 | BI_ITS ---
MAMMOGRAPHY - BILATERAL SCREENING REASON FOR EXAM: Female, 53 years old. Routine annual screening examination. PERTINENT HISTORY: Non-contributory. TECHNIQUE: Digital bilateral breast giovany (3D mammographic acquisition) in the CC and MLO projections. 2-D mediolateral oblique (MLO) and craniocaudad (CC) views of both breasts were obtained. CAD: Full Field Digital Mammography with Computer Added Detection was performed. COMPARISON: Comparison is made with prior study dated June 18, 2022 and May 05, 2021. FINDINGS: Breast Composition: The breasts are almost entirely fatty. There are no dominant masses or suspicious calcifications. Stable benign-appearing bilateral axillary lymph nodes. No other significant abnormalities are identified. There has been no significant change since the prior study. BI/SCRN MAMM (CAD)W/GIOVANY BILAT IMPRESSION: Stable bilateral screening mammogram. Yearly follow-up mammogram recommended. (A) ASSESSMENT CATEGORY: BIRADS Category 2: Benign. A letter regarding these results will be sent to the patient by the facility within 30 days. Approximately 10% of breast cancers are not detected by mammography. A normal mammogram should not delay biopsy of a clinically suspicious abnormality. [id number] Electronically Signed: Cristian Sellers MD at 14:45 EDT ,
== END | disposition home or self-care (01) ==
LOC: OPBI 07:10
PROVIDERS: PCP Family Medicine; Referring Provider Family Medicine; Visit Provider Family Medicine
DX: Z12.31 Encounter for screening mammogram for malignant neoplasm of breast (principal)
CPT/HCPCS: 77063; 77067

== ENCOUNTER 2024-01-27 07:54 | Day surgery (SDC) | payer OTHER, SELFPAY ==
[2024-01-27 08:14] VITALS: BP 144/83; PULSE 92; RESP 16; TEMP 36.4; O2SAT 96; BMI 56.5
[2024-01-27] MEDS: Lactated Ringers 1,000 ML 15 ML IV (08:26)
--- NOTE | 2024-01-27 08:41 | H&P.OPEN ---
HPI - General HPI Narrative JAIME BUSTILLOS, is a 53 F who presents for screening colonoscopy. Her last colonoscopy was 5 years and was normal. She was instructed to repeat in 10 but then her mother developed rectal cancer and she is now instructed to have colonoscopy every 5 years for surveillance. She reports no blood in her stool or abdominal pain. [facility] Medical History (Updated 01/27/24 @ 08:[address] Gordon Del Toro MD) Migraine headache Dietary restriction Former smoker Cardiology follow-up encounter Benign essential HTN Generalized anxiety disorder Hypercholesterolemia Family hx of colorectal cancer Recurrent ventral hernia Preop cardiovascular exam Abnormal EKG History of depression Type 2 diabetes mellitus without complication Adnexal mass Adnexal mass Home Medications ?Medication ?Instructions ?Recorded ?Last Taken ?Type multivitamin,[id number] 1 tab PO DAILY supplement 12/14/18 Unknown History (Complete Multivitamin tablet) cetirizine 10 mg capsule 10 mg PO DAILY supplement 01/18/19 Unknown History glipizide 2.5 mg tablet, extended 5 mg PO DAILY dm 03/21/19 Unknown History release 24 hr meloxicam 15 mg tablet 15 mg PO DAILY PRN pain 11/22/23 Unknown History metformin 500 mg tablet,extended 1,000 mg PO BID dm 11/22/23 Unknown History release 24 hr pioglitazone 30 mg tablet 30 mg PO DAILY 11/22/23 Unknown History rosuvastatin 10 mg tablet 10 mg PO DAILY 11/22/23 Unknown History metoprolol succinate 100 mg 100 mg PO DAILY 01/24/24 01/26/24 22:00 History tablet,extended release 24 hr sertraline 100 mg tablet 100 mg PO DAILY 01/24/24 Unknown History Allergy/AdvReac Type Severity Reaction Status Date / Time bacitracin (From Neosporin Allergy Intermediate rash Verified 01/27/24 08:13 ([id number])) neomycin (From Neosporin Allergy Intermediate rash Verified 01/27/24 08:13 ([id number])) polymyxin B (From Neosporin Allergy Intermediate rash Verified 01/27/24 08:13 ([id number])) nickel Allergy Mild rash Verified 01/27/24 08:13 Family History (Updated 11/22/23 @ 10:59 by Elsie Garner) Father Asthma Grandfather Cancer lung Grandmother Alzheimer disease Grandfather COPD (chronic obstructive pulmonary disease) Mother Colorectal cancer Surgical History (Updated 01/24/24 @ 14:23 by Hector Hart) H/O: hysterectomy Status post laparoscopy History of colonoscopy (~12/2018) History of cholecystectomy History of hernia repair History of section Social History Smoking Status: Former smoker quit date: 08/12/95 alcohol intake: never caffeine: Yes Type: carbonated beverages and tea Past Medical/Surgical History Planned Operation Planned Operative Procedure/s: COLONOSCOPY S.O.S: No Previous Hospitalizations/Surgeries HX Hospitalizations: No HX of Surgeries: csection 1995 hernia repair x3 gallbladder colonoscopy 2018 VENTRAL HERNIA REPAIR, ROBOTIC HYSTERECTOMY 03/27/19 Any Problems With Anesthesia: No You/Your Family Experience Fever (Hyperthermia) With Anes: No Cholinesterase deficiency: No Cardiovascular Hx Chest Pain within Last 2 months: No Hx of Irregular Heartbeat and/or Afib: No Hx Heart Attack: No Hx Congestive Heart Failure: No Hx Rheumatic Fever: No Hx Hypertension: Yes (CONTROLLED WITH MEDS) Hx Internal Defibrillator: No Hx Pacemaker: No Hx Cardiac Catheterization: No Hx Cardiac Surgery/Stents/Etc.: No Hx Stress Test: Yes (echo 01/2019) Hx Pain in Legs when Walking/Leg Cramps: No Respiratory Chronic Cough: No HX of Shortness of Breath: No Hoarseness: No Hx Chronic Obstructive Pulmonary Disease (COPD): No Hx Asthma: No Hx Emphysema: No Hx Sleep Apnea: No CPAP: No Hx Respiratory Tract Infection/Cold (presently): No Do You Snore Loudly (louder than talking or can be heard): No Do You Often Feel Tired/ Fatigued/ Sleepy Dring Daytime?: No Has Anyone Observed You Stop Breathing During Sleep?: No Result (for STOP score): Negative Hx Smoking: Yes (quit 1994) Smoking Status: Former smoker Gastrointestinal Hx Gastrointestinal Disorders: No Hx Gastrointestinal Bleed: No Hx Ulcer: No Hx Hiatal Hernia: No Difficulty Chewing/Swallowing: No Special diet followed at home: Yes (ada) Hx Unplanned Weight Loss of 20#: No HX Unplanned Weight Gain of 20#: No Neurological Hx Seizures: No HX Syncope/Blackout Spells/Unconsciousness: No Hx Transient Ischemic Attacks (TIA): No Hx Multiple Sclerosis: No Hx Parkinson's Disease: No Hx Head/Neck Injury: No Hx Headaches: No Hx Back Injury/Pain: No Recent Onset of Speech Difficulty: No Restless Legs: No Does patient have nerve stimulator: No Blood Disorder Hx Leukemia: No Bleeding Tendencies: No Hx Deep Vein Thrombosis: No Hx High Cholesterol: No Blood Transmitted Disease: No Hx Hepatitis: No Hx Cirrhosis: No Hx Anemia: No Hx Blood Disorders: No Reproduction Is Patient Lactating: No Hx Hysterectomy: Yes Hx Tubal Ligation: No Are You Post Menopause: No Genitourinary Hx Renal Disease: No Musculoskeletal Hx Arthritis: No Hx Rheumatoid Arthritis: No Hx Gout: No Recent Onset of an Orthopedic Problem: No Endocrine Hx Diabetes: Yes (oral medication) Insulin: No Thyroid Disease: No Hx Steroid Therapy: No Psycho/Social Hx Substance Use: No Hx Alcohol Use: No Hx Anxiety: Yes (situational) Hx Depression: No Mental Illness: No Hx Dementia: No Miscellaneous Hx Cancer: No Recent Exposure to Contagious Disease: No Hx of C-Diff: No Any Loose Teeth: No Allergies bacitracin (From Neosporin ([id number])) Allergy (Intermediate, Verified 01/27/24 08:13) rash neomycin (From Neosporin ([id number]-[id number])) Allergy (Intermediate, Verified 01/27/24 08:13) rash polymyxin B (From Neosporin (hku-lzg-[id number])) Allergy (Intermediate, Verified 01/27/24 08:13) rash nickel Allergy (Mild, Verified 01/27/24 08:13) rash Discharge After D/C, Where Do you Plan to Go: Return Home Vital Signs Vital Signs Vital Signs: 01/27/24 08:14 01/27/24 08:14 Temperature 97.5 F L Temperature Source Temporal Pulse Rate 92 Respiratory Rate 16 Respiratory Pattern Normal Blood Pressure 144/83 H Blood Pressure Mean 103 Blood Pressure Source Monitor Blood Pressure Position Semi-Fowlers Blood Pressure Location Right Forearm Pulse Ox 96 Oxygen Delivery Method Room Air Weight Weight: 329 lb Body Mass Index (BMI) 56.5 Physical Exam Const alert and oriented x3 HEENT normocephalic Eyes PERRL Resp normal respiratory effort and normal air movement Cardio regular rate and regular rhythm GI soft to palpation, non-tender and non-distended Extremity normal to inspection Assessment & Plan Assessment/Plan (1) Family history of rectal cancer: PLAN: I explained endoscopy in detail to the patient. I explained the risks including but not limited to stroke or heart attack with anesthesia, perforation of the GI tract, bleeding, infection. I explained that any of these could necessitate further emergency surgery. The patient understands and all questions were answered sufficiently. The patient wishes to proceed with procedure. Gordon Del Toro MD Pager: [facility] [address] [place] [address] [address] [place] [address] Office: Surgery Risks - Colonoscopy Risks Include but are not Limited To: Risks include but are not limited to: Bleeding, perforation requiring further surgery, inability to complete colonoscopy requiring barium enema.
[2024-01-27 09:10] VITALS: BP 109/61; BP 144/83; PULSE 80; RESP 18; TEMP 36.2; O2SAT 97
--- NOTE | 2024-01-27 09:12 | OP.COLON_ITS ---
Patient Name: Deepti Perez Procedure Date: 01/27/2024 8:50 AM Date of : 1970 Age: 53 Procedure: Colonoscopy Indications: Screening in patient at increased risk: Colorectal cancer in mother 60 or older Providers: Gordon Del Toro MD Referring MD: You Maradiaga Md Medicines: Propofol per Anesthesia Patient Profile: This is a 53 year old female. Refer to note in patient chart for documentation of history and physical. Last Colonoscopy: 5 years ago. Complications: No immediate complications. Procedure: Pre-Anesthesia Assessment: - Prior to the procedure, a History and Physical was performed, and patient medications and allergies were reviewed. The patient's tolerance of previous anesthesia was also reviewed. The risks and benefits of the procedure and the sedation options and risks were discussed with the patient. All questions were answered, and informed consent was obtained. Prior Anticoagulants: The patient has taken no anticoagulant or antiplatelet agents. After reviewing the risks and benefits, the patient was deemed in satisfactory condition to undergo the procedure. After I obtained informed consent, the scope was passed under direct vision. Throughout the procedure, the patient's blood pressure, pulse, and oxygen saturations were monitored continuously. The pediatric colonoscope was introduced through the anus and advanced to the cecum, identified by appendiceal orifice and ileocecal valve. The colonoscopy was performed without difficulty. The patient tolerated the procedure well. The quality of the bowel preparation was good. The ileocecal valve, appendiceal orifice, and rectum were photographed. Scope In: 8:53:31 AM Scope Withdrawal Time 0 hours 6 minutes 2 seconds Scope Out: 9:05:02 AM Total Procedure Duration Time 0 hours 11 minutes 31 seconds Findings: The entire examined colon appeared normal on direct and retroflexion views. Impression: - The entire examined colon is normal on direct and retroflexion views. - No specimens collected. Recommendation: - Discharge patient to home. - Resume previous diet. - Continue present medications. - Repeat colonoscopy in 5 years for screening purposes. Procedure Code(s): --- Professional --- 54759, Colonoscopy, flexible; diagnostic, including collection of specimen(s) by brushing or washing, when performed (separate procedure) Diagnosis Code(s): --- Professional --- Z80.0, Family history of malignant neoplasm of digestive organs CPT copyright 2021 [employer]. All rights reserved. The codes documented in this report are preliminary and upon surgical coder review may be revised to meet current compliance requirements. Gordon Del Toro MD 01/27/2024 9:12:13 AM This report has been signed electronically. Number of Addenda: 0 Note Initiated On: 01/27/2024 8:50 AM
--- NOTE | 2024-01-27 09:12 | OP.CCLET_ITS ---
01/27/2024 You Maradiaga Md Re : Colonoscopy procedure for Deepti Perez Dear Dr. Maradiaga This procedure was performed on Saturday, January 27, 2024. My impressions and recommendations are as follows: Impressions : - The entire examined colon is normal on direct and retroflexion views. - No specimens collected. Recommendations : - Discharge patient to home. - Resume previous diet. - Continue present medications. - Repeat colonoscopy in 5 years for screening purposes. My findings are described in the full procedure note, which is enclosed. If I can be of further assistance, please feel free to contact me at Doctor phone number(s): , Work: . Sincerely, Gordon Del Toro MD 01/27/2024 9:12:13 AM This report has been signed electronically.
[2024-01-27 09:15] VITALS: BP 108/59; BP 144/83; PULSE 78; RESP 16; O2SAT 96
[2024-01-27 09:20] VITALS: BP 102/61; BP 144/83; PULSE 80; RESP 16; O2SAT 96
[2024-01-27 09:25] VITALS: BP 112/66; BP 144/83; PULSE 80; RESP 16; TEMP 36.3; O2SAT 96
[2024-01-27 09:45] VITALS: BP 144/83
[2024-01-27 10:04] LABS: Bedside Glucose 173 mg/dL (74-106)
== END 2024-01-27 09:56 | disposition home or self-care (01) ==
LOC: EN 07:55 → AC 07:57
PROVIDERS: Visit Provider Surgery
PROC: 0DJD8ZZ Inspection of Lower Intestinal Tract, Via Natural or Artificial Opening Endoscopic (ICD-10-PCS; CPT 45378; principal; 2024-01-27 08:55)
DX: Z12.11 Encounter for screening for malignant neoplasm of colon (principal); E11.9 Type 2 diabetes mellitus without complications; I10 Essential (primary) hypertension; Z80.0 Family history of malignant neoplasm of digestive organs; Z79.84 Long term (current) use of oral hypoglycemic drugs; Z79.899 Other long term (current) drug therapy; Z87.891 Personal history of nicotine dependence
CPT/HCPCS: 45378; 82962; J7120; J2405

== ENCOUNTER → 2024-06-21 | Outpatient (CLI) | payer OTHER, SELFPAY ==
--- NOTE | 2024-06-21 07:02 | BI_ITS ---
MAMMOGRAPHY - BILATERAL SCREENING REASON FOR EXAM: Female, 54 years old. Routine annual screening examination. PERTINENT HISTORY: Non-contributory. TECHNIQUE: Digital bilateral breast giovany (3D mammographic acquisition) in the CC and MLO projections. 2-D mediolateral oblique (MLO) and craniocaudad (CC) views of both breasts were obtained. CAD: Full Field Digital Mammography with Computer Added Detection was performed. COMPARISON: Comparison is made with prior study June 20, 2023 and June 18, 2022. FINDINGS: Breast Composition: The breasts are almost entirely fatty. There are no dominant masses or suspicious calcifications. No other significant abnormalities are identified. There has been no significant change since the prior study. BI/SCRN MAMM (CAD)W/GIOVANY BILAT IMPRESSION: Stable bilateral screening mammogram. Yearly follow-up mammogram recommended. (A) ASSESSMENT CATEGORY: BIRADS Category 1: Negative. A letter regarding these results will be sent to the patient by the facility within 30 days. Approximately 10% of breast cancers are not detected by mammography. A normal mammogram should not delay biopsy of a clinically suspicious abnormality. [id number] Electronically Signed: Cristian Sellers MD at 8:06 EDT ,
== END | disposition home or self-care (01) ==
LOC: OPBI 07:00
DX: Z12.31 Encounter for screening mammogram for malignant neoplasm of breast (principal)
CPT/HCPCS: 77063; 77067

== ENCOUNTER → 2025-06-24 | Outpatient (CLI) | payer OTHER, SELFPAY ==
--- NOTE | 2025-06-24 08:42 | BI_ITS ---
EXAM: Digital screening mammogram with giovany DATE: 06/24/2025 CLINICAL HISTORY: F, Age 55 y/o , SCREENING TECHNIQUE: Procedure Code: [id number] Modality: MG Procedure: SCRN MAMM (CAD)W/GIOVANY BILAT COMPARISON: Prior exam(s) dated 06/21/2024 and 06/20/2023. FINDINGS: TISSUE DENSITY: The breasts are almost entirely fatty. Bilateral Breast Mammographic Findings: No significant masses, calcifications or other abnormalities are identified. Benign-appearing round calcifications are seen in both breasts. A 3 mm well-circumscribed stable isodense mass in the inferior medial aspect of the right breast is noted. A stable 3 mm density in the superior, far posterior aspect of the right breast is noted. BI/SCRN MAMM (CAD)W/GIOVANY BILAT IMPRESSION: Benign screening mammogram OVERALL FINAL ASSESSMENT BI-RADS 2: BENIGN RECOMMENDATION: Routine annual follow-up in 1 Year Additional Recommendation none A letter with findings and recommendations will be mailed to the patient. Reading Location: [id number]
== END | disposition home or self-care (01) ==
LOC: OPBI 08:40
DX: Z12.31 Encounter for screening mammogram for malignant neoplasm of breast (principal)
CPT/HCPCS: 77063; 77067